=== PATIENT | female | born 1950 | race Caucasian/White ===

== ENCOUNTER → 2016-06-09 | Outpatient (CLI) | payer MEDICARE ==
--- NOTE | 2016-06-12 12:36 | XR ---
EXAMINATION TYPE: XR chest 2V DATE OF EXAM: 06/09/2016 3:39 PM COMPARISON: Prior chest x-ray 30 October 2014 HISTORY: Shortness of breath TECHNIQUE: Frontal and lateral views of the chest are obtained. FINDINGS: There is no focal air space opacity, pleural effusion, or pneumothorax seen. The cardiac silhouette size is within normal limits. Lung volumes are prominent which may be indicative of COPD . There is eventration change of the right hemidiaphragm. Patient is rotated. The osseous structures are intact. IMPRESSION: No acute cardiopulmonary process.
== END | disposition home or self-care (01) ==
LOC: RADXRYALE 15:25
PROVIDERS: ATTEND Family Medicine
DX: R06.02 Shortness of breath (principal)
CPT/HCPCS: 71020

== ENCOUNTER → 2016-06-15 | Outpatient (CLI) | payer MEDICARE ==
--- NOTE | 2016-06-15 11:59 | FL ---
EXAMINATION TYPE: FL barium swallow DATE OF EXAM: 06/15/2016 11:54 AM MODIFIED SWALLOW / DEGLUTITION STUDY CLINICAL HISTORY: Dysphagia. TECHNIQUE: Deglutition study is performed utilizing thin liquid barium, honey and nectar thick liqui d barium, barium thick applesauce, and barium coated cracker. A total of 2 minutes 8 seconds of fluor oscopic time was utilized during procedure. COMPARISON: None. FINDINGS: The oral and pharyngeal phases show satisfactory initiation and propagation with all modali ties tested. Normal mastication is seen with solid modalities tested. There is no evidence of penet ration or aspiration with any modality tested. No significant pharyngeal residue was appreciated. IMPRESSION: Normal deglutition study. Please refer to speech therapist notes for further details if necessary.
== END | disposition home or self-care (01) ==
LOC: RADFLMAIN 11:32
PROVIDERS: ATTEND Family Medicine
DX: R13.10 Dysphagia, unspecified (principal)
CPT/HCPCS: 74220

== ENCOUNTER → 2016-07-14 | Outpatient (CLI) | payer MEDICARE ==
--- NOTE | 2016-07-17 10:51 | XR ---
EXAMINATION TYPE: XR chest 2V DATE OF EXAM: 07/14/2016 2:51 PM COMPARISON: NONE HISTORY: Shortness of breath TECHNIQUE: Frontal and lateral views of the chest are obtained. FINDINGS: There is no focal air space opacity, pleural effusion, or pneumothorax seen. The cardiac silhouette size is within normal limits. Prominent lung volume may be indicative of COPD. The osseou s structures are intact. IMPRESSION: No acute cardiopulmonary process.
== END | disposition home or self-care (01) ==
LOC: RADXRYALE 14:38
PROVIDERS: ATTEND Family Medicine
DX: R06.02 Shortness of breath (principal)
CPT/HCPCS: 71020

== ENCOUNTER → 2018-03-01 | Outpatient (CLI) | payer MEDICARE ==
--- NOTE | 2018-03-01 14:52 | XR ---
EXAMINATION TYPE: XR abdomen 2V DATE OF EXAM: 03/01/2018 COMPARISON: 12/06/2014 HISTORY: Abdominal pain and diarrhea TECHNIQUE: One view abdominal series FINDINGS: The osseous structures are intact. The bowel gas pattern is nonspecific. Hypertrophic and degenerati ve change of the spine with scoliosis. Vascular calcifications. Arthropathy of the hips. IMPRESSION: 1. Nonspecific abdomen
== END | disposition home or self-care (01) ==
LOC: RADXRYALE 14:29
PROVIDERS: ATTEND Physician Assistant Medical
DX: R10.30 Lower abdominal pain, unspecified (principal); R19.7 Diarrhea, unspecified
CPT/HCPCS: 74019

== ENCOUNTER 2019-04-09 05:47 | Emergency (ER) | payer MEDICARE ==
[2019-04-09] MEDS ORDERED: IPRATROPIUM-ALBUTEROL 3 ML NEB INHALATION STA (06:16)
[2019-04-09] MEDS ORDERED: SODIUM CHLORIDE 0.9% 1,000 ML IV STA ×2 (06:16)
[2019-04-09] MEDS ORDERED: methylPREDNISolone SOD SUCCI 125 MG/2 ML VIAL IV STA (06:16)
--- NOTE | 2019-04-09 06:21 | ED ---
General Adult HPI - General Chief complaint: Shortness of Breath Stated complaint: RADHA Time Seen by Provider: 04/09/19 06:07 Source: patient, RN notes reviewed, old records reviewed Mode of arrival: ambulatory Limitations: no limitations - History of Present Illness Initial comments: 68-year-old female presents today for concern for difficulty breathing. Patient reports history of asthma and COPD. Patient reports that she does have nebulizers at home but has not used them. Patient states that she has had a this difficulty breathing for the past 2 days. Patient denies any fevers or chills. She reports her cough is nonproductive. Patient denies any chest pain, fevers or chills. - Related Data Home Medications Medication Instructions Recorded Confirmed Budesonide/Formoterol Fumarate 2 puff INHALATION RT-BID PRN 10/29/14 12/07/14 [Symbicort 160-4.5 Mcg Inhaler] Clopidogrel [Plavix] 75 mg PO DAILY 10/29/14 12/07/14 Felodipine [Felodipine ER] 10 mg PO DAILY 10/29/14 12/07/14 Ipratropium/Albuterol Sulfate 1 puff INHALATION RT-TID PRN 10/29/14 12/07/14 [Combivent Respimat Inhaler] Meclizine [Antivert] 25 mg PO DAILY 10/29/14 12/07/14 Morphine Sulfate 30 mg PO 5XD 10/29/14 12/07/14 Spironolactone [Aldactone] 25 mg PO DAILY 10/29/14 12/07/14 clonazePAM [Clonazepam] 0.5 mg PO HS 10/29/14 12/07/14 fentaNYL [Duragesic 100MCG/HR] 100 mcg TRANSDERM Q72H 10/29/14 12/07/14 Citalopram Hydrobromide [CeleXA] 20 mg PO DAILY 12/07/14 12/07/14 Previous Rx's Medication Instructions Recorded Polyethylene Glycol 3350 [Miralax] 17 gm PO DAILY #14 packet 11/03/14 Hydrocodone/Acetaminophen [[place] 1 each PO Q6HR PRN #20 tab 11/10/14 5-325] Famotidine [Pepcid] 40 mg PO DAILY tab 12/08/14 Vancomycin Oral Solution 250 mg PO Q6HR 10 Days ml 12/08/14 Ipratropium-Albuterol Nebulize 3 ml INHALATION TID #30 neb 04/09/19 [Duoneb 0.5 mg-3 mg/3 ml Soln] predniSONE 20 mg PO BID #10 tab 04/09/19 Allergies Allergy/AdvReac Type Severity Reaction Status Date / Time cefuroxime axetil Allergy Unknown Verified 12/07/14 14:39 [From Ceftin] diphenhydramine HCl Allergy Rash/Hives Verified 12/07/14 14:39 [From Benadryl] Sulfa (Sulfonamide Allergy Rash/Hives Verified 12/07/14 14:39 Antibiotics) NSAIDS (Non-Steroidal AdvReac Nausea Verified 12/07/14 14:39 Anti-Inflamma Review of Systems ROS Statement: Those systems with pertinent positive or pertinent negative responses have been documented in the HPI. ROS Other: All systems not noted in ROS Statement are negative. Past Medical History Past Medical History: Asthma, COPD, CVA/TIA, GERD/Reflux, Hypertension, Liver Disease, Pneumonia Additional Past Medical History / Comment(s): vertigo, HEP -C THINKS SHE MAY HAVE GOTTEN IT IN 1974 HAD RUPTURED TUBAL AND RECIEVED BLOOD TRANSFUSION, STROKE 2001 NO RESIDUAL PROBLEMS, PALPITATION,INCONT OF URINE, VERTIGO. History of Any Multi-Drug Resistant Organisms: C-DIFF Date of last positivie culture/infection: 12/07/14 MDRO Source:: Stool Past Surgical History: Adenoidectomy, Appendectomy, Back Surgery, Hysterectomy, Tonsillectomy Additional Past Surgical History / Comment(s): IST SX LAMENECTOMY, 2ND FUSION THINSK SHE HAS A DEBORAH INPLACE, CATARACTS [place]ERETTE LENS IMPLANTS, TUBAL IN 1974, LIVER BIOPSY NEG CANCER BUT POSITIVE FOR HEP C. Past Anesthesia/Blood Transfusion Reactions: No Reported Reaction Past Psychological History: Depression Smoking Status: Former smoker Past Alcohol Use History: None Reported Past Drug Use History: None Reported - Past Family History Father Family Medical History: Cancer Additional Family Medical History / Comment(s): BLADDER CANCER BUT FROM A STROKE Mother Family Medical History: Diabetes Mellitus, Myocardial Infarction ([place]) Additional Family Medical History / Comment(s): HEART PROBLEMS General Exam - General Exam Comments Initial Comments: 68 -year-old female. Alert and oriented. No distress. Limitations: no limitations General appearance: alert, in no apparent distress Head exam: Present: atraumatic, normocephalic, normal inspection Eye exam: Present: normal appearance, PERRL, EOMI. Absent: scleral icterus, conjunctival injection, periorbital swelling ENT exam: Present: normal exam, mucous membranes moist Neck exam: Present: normal inspection. Absent: tenderness, meningismus, lymphadenopathy Respiratory exam: Present: wheezes (mild wheeezing). Absent: respiratory distress, rales, rhonchi, stridor Cardiovascular Exam: Present: regular rate, normal rhythm, normal heart sounds. Absent: systolic murmur, diastolic murmur, rubs, gallop, clicks GI/Abdominal exam: Present: soft, normal bowel sounds. Absent: distended, tenderness, guarding, rebound, rigid Extremities exam: Present: normal inspection Back exam: Present: normal inspection Neurological exam: Present: alert, oriented X3, CN II-XII intact Psychiatric exam: Present: normal affect, normal mood Skin exam: Present: warm, dry, intact, normal color. Absent: rash Course Vital Signs 04/09/19 04/09/19 04/09/19 05:49 05:59 06:42 Temperature 97.4 F L 97.8 F Pulse Rate 82 74 Respiratory 22 20 18 Rate Blood Pressure 122/65 126/83 O2 Sat by Pulse 98 98 Oximetry 04/09/19 04/09/19 06:48 07:05 Temperature Pulse Rate 73 73 Respiratory Rate Blood Pressure O2 Sat by Pulse Oximetry EKG Findings - EKG Comments: EKG Findings:: EKG performed at 6:28 AM shows normal sinus rhythm prolonged QT. Ventricular rate of 71 beats per minute. Pulse 146 most seconds. Care is duration 76 ms. QT QTc is 454/4 and 93 ms. Medical Decision Making - Medical Decision Making Pleasant [id number] female presents today for shortness of breath and dry cough for the past 2 days. She does have some wheezing, feels some tightness with taking a deep breath in her chest. Patient does have history of asthma and COPD. She does not been using her treatments at home. Double DuoNeb treatment has resolution of her wheezing feels better. She is given IV Solu-Medrol. Blood work and EKG reviewed remarkable. Chest x-ray shows concern for mild fluid overload state but her BNP is normal. No signs of heart failure on exam. I discussed treatment for asthma exacerbations time of the short course of s teroids and continuing her nebulizers at home. Patient was reevaluated and is agreeable to this plan. Discussed strict return parameters and close PCP follow-up. - Lab Data Result diagrams: 04/09/19 06:30 04/09/19 06:30 Lab Results 04/09/19 04/09/19 04/09/19 Range/Units 06:30 06:30 06:30 WBC 4.7 (3.8-10.6) k/uL RBC 3.99 (3.80-5.40) m/uL Hgb 13.4 (11.4-16.0) gm/dL Hct 37.1 (34.0-46.0) % MCV 92.9 (80.0-100.0) fL MCH 33.5 (25.0-35.0) pg MCHC 36.1 (31.0-37.0) g/dL RDW 13.0 (11.5-15.5) % Plt Count 302 (150-450) k/uL Neutrophils % 61 % Lymphocytes % 29 % Monocytes % 6 % Eosinophils % 2 % Basophils % 0 % Neutrophils # 2.8 (1.3-7.7) k/uL Lymphocytes # 1.4 (1.0-4.8) k/uL Monocytes # 0.3 (0-1.0) k/uL Eosinophils # 0.1 (0-0.7) k/uL Basophils # 0.0 (0-0.2) k/uL Hyperchromasia Slight PT 10.9 (9.0-12.0) sec INR 1.0 (<1.2) APTT 29.0 (22.0-30.0) sec Sodium 135 L (137-145) mmol/L Potassium 3.6 (3.5-5.1) mmol/L Chloride 93 L (98-107) mmol/L Carbon Dioxide 30 (22-30) mmol/L Anion Gap 12 mmol/L BUN 10 (7-17) mg/dL Creatinine 0.85 (0.52-1.04) mg/dL Est GFR (CKD-EPI)AfAm 81 (>60 ml/min/1.73 sqM) Est GFR (CKD-EPI)NonAf 70 (>60 ml/min/1.73 sqM) Glucose 102 H (74-99) mg/dL Calcium 9.4 (8.4-10.2) mg/dL Magnesium 1.8 (1.6-2.3) mg/dL Total Bilirubin 0.7 (0.2-1.3) mg/dL AST 29 (14-36) U/L ALT 14 (4-34) U/L Alkaline Phosphatase 97 (38-126) U/L Troponin I (0.000-0.034) ng/mL NT-Pro-B Natriuret Pep pg/mL Total Protein 8.0 (6.3-8.2) g/dL Albumin 4.8 (3.5-5.0) g/dL 04/09/19 04/09/19 Range/Units 06:30 06:30 WBC (3.8-10.6) k/uL RBC (3.80-5.40) m/uL Hgb (11.4-16.0) gm/dL Hct (34.0-46.0) % MCV (80.0-100.0) fL MCH (25.0-35.0) pg MCHC (31.0-37.0) g/dL RDW (11.5-15.5) % Plt Count (150-450) k/uL Neutrophils % % Lymphocytes % % Monocytes % % Eosinophils % % Basophils % % Neutrophils # (1.3-7.7) k/uL Lymphocytes # (1.0-4.8) k/uL Monocytes # (0-1.0) k/uL Eosinophils # (0-0.7) k/uL Basophils # (0-0.2) k/uL Hyperchromasia PT (9.0-12.0) sec INR (<1.2) APTT (22.0-30.0) sec Sodium (137-145) mmol/L Potassium (3.5-5.1) mmol/L Chloride (98-107) mmol/L Carbon Dioxide (22-30) mmol/L Anion Gap mmol/L BUN (7-17) mg/dL Creatinine (0.52-1.04) mg/dL Est GFR (CKD-EPI)AfAm (>60 ml/min/1.73 sqM) Est GFR (CKD-EPI)NonAf (>60 ml/min/1.73 sqM) Glucose (74-99) mg/dL Calcium (8.4-10.2) mg/dL Magnesium (1.6-2.3) mg/dL Total Bilirubin (0.2-1.3) mg/dL AST (14-36) U/L ALT (4-34) U/L Alkaline Phosphatase (38-126) U/L Troponin I <0.012 (0.000-0.034) ng/mL NT-Pro-B Natriuret Pep 152 pg/mL Total Protein (6.3-8.2) g/dL Albumin (3.5-5.0) g/dL Disposition Clinical Impression: Asthma exacerbation in COPD Disposition: HOME SELF-CARE Condition: Good Instructions (If sedation given, give patient instructions): Asthma (ED) Additional Instructions: Continue use breathing treatments every 4-6 hours as needed. Take the steroids starting tomorrow. Close follow-up with your primary care doctor. Prescriptions: Ipratropium-Albuterol Nebulize [Duoneb 0.5 mg-3 mg/3 ml Soln] 3 ml INHALATION TID #30 neb predniSONE 20 mg PO BID #10 tab Is patient prescribed a controlled substance at d/c from ED?: No Referrals: Mack Traylor DO [Primary Care Provider] - 1-2 days Time of Disposition: 08:18
[2019-04-09 06:44] VITALS: TEMP 97.8
[2019-04-09 06:49] LABS: Basophils % (A) 0 %; Eosinophils # (A) 0.1 k/uL (0-0.7); Eosinophils % (A) 2 %; HCT 37.1 % (34.0-46.0); HGB 13.4 gm/dL (11.4-16.0); Hyperchromasia Slight; Lymphocytes # (A) 1.4 k/uL (1.0-4.8); Lymphocytes % (A) 29 %; MCH 33.5 pg (25.0-35.0); MCHC 36.1 g/dL (31.0-37.0); MCV 92.9 fL (80.0-100.0); Mean Platelet Volume 7.8; Monocytes # (A) 0.3 k/uL (0-1.0); Monocytes % (A) 6 %; Neutrophils # (A) 2.8 k/uL (1.3-7.7); Neutrophils % (A) 61 %; Platelet Count 302 k/uL (150-450); RBC 3.99 m/uL (3.80-5.40); WBC 4.7 k/uL (3.8-10.6)
[2019-04-09 06:57] LABS: Prothrombin Time 10.9 sec (9.0-12.0)
[2019-04-09 06:58] LABS: Albumin 4.8 g/dL (3.5-5.0); Calcium 9.4 mg/dL (8.4-10.2); Magnesium 1.8 mg/dL (1.6-2.3); Potassium 3.6 mmol/L (3.5-5.1); Total Bilirubin 0.7 mg/dL (0.2-1.3)
--- NOTE | 2019-04-09 07:31 | XR ---
EXAMINATION TYPE: XR chest 2V DATE OF EXAM: 04/09/2019 COMPARISON: Chest x-ray July 14, 2016. HISTORY: Difficulty in breathing. TECHNIQUE: Frontal and lateral views of the chest are obtained. FINDINGS: Background Chronic emphysematous changes are thought present. There is no new suspicious f ocal air space opacity, pleural effusion, or pneumothorax seen. And mild central vascular congestion though present as there is some cephalization noted. The cardiac silhouette size remains within hans l limits. Overlying EKG leads are seen. The osseous structures are intact. IMPRESSION: Correlate for new mild fluid overload state..
[2019-04-09 08:31] VITALS: BP 135/76; PULSE 76; RESP 16
== END 2019-04-09 08:29 | disposition home or self-care (01) ==
LOC: EC 05:47
DX: J44.1 Chronic obstructive pulmonary disease with (acute) exacerbation (principal); E87.70 Fluid overload, unspecified; I10 Essential (primary) hypertension; F32.9 Major depressive disorder, single episode, unspecified; Z79.51 Long term (current) use of inhaled steroids; Z79.02 Long term (current) use of antithrombotics/antiplatelets; Z79.899 Other long term (current) drug therapy; Z88.1 Allergy status to other antibiotic agents; Z88.8 Allergy status to other drugs, medicaments and biological substances; Z88.2 Allergy status to sulfonamides; Z88.6 Allergy status to analgesic agent; Z87.891 Personal history of nicotine dependence; Z86.73 Personal history of transient ischemic attack (TIA), and cerebral infarction without residual deficits
CPT/HCPCS: 36415; 94640; 93005; 83880; 80053; 83735; 84484; 85025; 85610; 85730; 71046; 96374; 96361; 99285; J2930

== ENCOUNTER → 2019-11-12 | Outpatient (CLI) | payer MEDICARE ==
--- NOTE | 2019-11-12 10:12 | XR ---
EXAMINATION TYPE: XR ankle complete RT DATE OF EXAM: 11/12/2019 CLINICAL HISTORY: Ankle swelling and redness. No known injury. TECHNIQUE: Frontal, lateral and oblique images of the right ankle are obtained. COMPARISON: None. FINDINGS: There is no acute fracture/dislocation evident in the right ankle. The ankle mortise appe ars within normal limits. Degenerative changes of the midfoot seen on lateral view. Plantar entheso phyte. Decreased osseous mineralization. The overlying soft tissue appears unremarkable. IMPRESSION: 1. No swelling or acute osseous abnormality. 2. Degenerative changes of the midfoot. 3. Plantar enthesophyte.
== END | disposition home or self-care (01) ==
LOC: RADXRYALE 09:09
PROVIDERS: ATTEND Physician Assistant
DX: M19.071 Primary osteoarthritis, right ankle and foot (principal); M77.31 Calcaneal spur, right foot

== ENCOUNTER → 2020-12-22 | Outpatient (CLI) | payer MEDICARE ==
--- NOTE | 2020-12-23 13:12 | BD ---
EXAMINATION TYPE: Axial Bone Density DATE OF EXAM: 12/22/2020 COMPARISON: 12/11/2014 CLINICAL HISTORY: Height: 62 IN Weight: 115 LBS RISK FACTORS HISTORY OF: Active: LIMITED Diet low in dairy products/other sources of calcium: YES Postmenopausal woman: LIMITED Take estrogen and/or progesterone medications: NOT NOW How long: APPROX 5 YEARS Lost more than 2 inches in height since high school: YES 3 " MEDICATIONS: Additional Medications: PAIN MEDS EXAM MEASUREMENTS: Bone mineral densitometry was performed using the NEHP System. Bone mineral density as measured about the Lumbar spine is: ----- L1-L4(G/cm2): 1.416 T Score Values are as follows: ----- L2: 1.9 ----- L3: 2.9 ----- L4: 0.8 ----- L1-L4: 2.0 Bone mineral density has: Decreased -11.7% since study of: 12/11/2014 Bone mineral density about the R hip (g/cm2): 0.906 Bone mineral density about the L hip (g/cm2): 0.859 T Score values are as follows: -----R Neck: -1.0 -----L Neck: -1.3 -----R Total: -0.6 -----L Total: -1.4 Bone mineral density has: Decreased -12.8% since study of: 12/11/2014 IMPRESSION: Osteopenia (T Score between -2.5 and -1). There is slightly increased risk of fracture and the patient may be considered for treatment. Re-Screen 2-5 years. NOTE: T-SCORE=SD OF THE YOUNG ADULT MEAN.
--- NOTE | 2020-12-24 11:46 | MM ---
Reason for exam: screening (asymptomatic). Last mammogram was performed 6 years ago. History: Patient is postmenopausal. Excisional biopsy of the left breast, October 02, 2006. Took estrogen for 6 years beginning at age 45. Physical Findings: A clinical breast exam by your physician is recommended on an annual basis and results should be correlated with mammographic findings. MG 3D Screening Mammo W/Cad Bilateral CC and MLO view(s) were taken. Prior study comparison: December 11, 2014, bilateral MG screening mammo w CAD. January 31, 2013, bilateral digital screening mammogram. Focal asymmetryl left upper inner quadrant middle position. No significant changes when compared with prior studies. ASSESSMENT: Benign, BI-RAD 2 RECOMMENDATION: Routine screening mammogram of both breasts in 1 year.
== END | disposition home or self-care (01) ==
LOC: RADBDWWP 15:05
PROVIDERS: ATTEND Family Medicine
DX: Z12.31 Encounter for screening mammogram for malignant neoplasm of breast (principal); M85.89 Other specified disorders of bone density and structure, multiple sites; Z78.0 Asymptomatic menopausal state; Z79.818 Long term (current) use of other agents affecting estrogen receptors and estrogen levels
CPT/HCPCS: 77063; 77067; 77080

== ENCOUNTER 2021-12-31 19:24 | Emergency (ER) | payer MEDICARE ==
[2021-12-31 20:09] LABS: Basophils % (A) 0 %; Eosinophils # (A) 0.1 k/uL (0-0.7); Eosinophils % (A) 1 %; HCT 35.8 % (34.0-46.0); HGB 12.4 gm/dL (11.4-16.0); Lymphocytes # (A) 0.9 k/uL (1.0-4.8); Lymphocytes % (A) 12 %; MCH 34.4 pg (25.0-35.0); MCHC 34.7 g/dL (31.0-37.0); Mean Platelet Volume 7.8; Monocytes # (A) 0.6 k/uL (0-1.0); Monocytes % (A) 7 %; Neutrophils % (A) 77 %; Platelet Count 181 k/uL (150-450); RBC 3.61 m/uL (3.80-5.40); RDW 13.6 % (11.5-15.5); WBC 7.8 k/uL (3.8-10.6)
[2021-12-31 20:17] LABS: Partial Thromboplastin Time 30.8 sec (22.0-30.0); Prothrombin Time 10.8 sec (9.0-12.0)
--- NOTE | 2021-12-31 20:17 | ED ---
General Adult HPI <Benji Rodriguez - Last Filed: 01/01/22 02:53> - General Source: patient, EMS Mode of arrival: EMS Limitations: no limitations <SarinaDeonte - Last Filed: 01/01/22 17:05> - General Chief complaint: Weakness Stated complaint: Weakness Time Seen by Provider: 12/31/21 20:12 - History of Present Illness Initial comments: Patient presents to the ED by ambulance for evaluation. Patient states that she has felt generally weak, tired and dyspneic for the past couple of days. Jm nicholson is also noted to have a low-grade fever on arrival to the ED. Patient denies taking any antipyretic medication today. Patient states that she is not vaccinated for Covid. Patient denies having any pain, headache, focal numbness/weakness/neuro deficit, neck pain or stiffness, sore throat, chest pain, cough or cold symptoms, palpitations, dizziness, abdominal pain, nausea/vomiting/diarrhea, bloody or melanotic stool, dysuria/hematuria/urinary frequency/urinary symptoms, decreased urine output, leg or calf swelling or pain, or any other symptoms or complaints. (Deonte Branch) - Related Data Home Medications Medication Instructions Recorded Confirmed Budesonide/Formoterol Fumarate 2 puff INHALATION RT-BID PRN 10/29/14 12/07/14 [Symbicort 160-4.5 Mcg Inhaler] Clopidogrel [Plavix] 75 mg PO DAILY 10/29/14 12/07/14 Felodipine [Felodipine ER] 10 mg PO DAILY 10/29/14 12/07/14 Ipratropium/Albuterol Sulfate 1 puff INHALATION RT-TID PRN 10/29/14 12/07/14 [Combivent Respimat Inhaler] Meclizine [Antivert] 25 mg PO DAILY 10/29/14 12/07/14 Morphine Sulfate 30 mg PO 5XD 10/29/14 12/07/14 Spironolactone [Aldactone] 25 mg PO DAILY 10/29/14 12/07/14 clonazePAM 0.5 mg PO HS 10/29/14 12/07/14 fentaNYL [Duragesic 100MCG/HR] 100 mcg TRANSDERM Q72H 10/29/14 12/07/14 Citalopram Hydrobromide [CeleXA] 20 mg PO DAILY 12/07/14 12/07/14 Previous Rx's Medication Instructions Recorded polyethylene glycoL 3350 [Miralax] 17 gm PO DAILY #14 packet 11/03/14 Hydrocodone/Acetaminophen [[place] 1 each PO Q6HR PRN #20 tab 11/10/14 5-325] Famotidine [Pepcid] 40 mg PO DAILY tab 12/08/14 Vancomycin Oral Solution 250 mg PO Q6HR 10 Days ml 12/08/14 Ipratropium-Albuterol Nebulize 3 ml INHALATION TID #30 neb 04/09/19 [Duoneb 0.5 mg-3 mg/3 ml Soln] predniSONE [Deltasone] 20 mg PO BID #10 tab 04/09/19 Levofloxacin [Levaquin] 500 mg PO DAILY 7 Days #7 tab 01/01/22 Allergies Allergy/AdvReac Type Severity Reaction Status Date / Time cefuroxime axetil Allergy Unknown Verified 12/31/21 19:31 [From Ceftin] diphenhydramine HCl Allergy Rash/Hives Verified 12/31/21 19:31 [From Benadryl] Sulfa (Sulfonamide Allergy Rash/Hives Verified 12/31/21 19:31 Antibiotics) NSAIDS (Non-Steroidal AdvReac Nausea Verified 12/31/21 19:31 Anti-Inflamma Review of Systems ROS Other: All systems not noted in ROS Statement are negative. <Benji Rodriguez - Last Filed: 01/01/22 02:53> ROS Other: All systems not noted in ROS Statement are negative. <Deonte Branch - Last Filed: 01/01/22 17:05> ROS Statement: Those systems with pertinent positive or pertinent negative responses have been documented in the HPI. Past Medical History Past Medical History: Asthma, COPD, CVA/TIA, GERD/Reflux, Hypertension, Liver Disease, Pneumonia Additional Past Medical History / Comment(s): vertigo, HEP -C THINKS SHE MAY HAVE GOTTEN IT IN 1974 HAD RUPTURED TUBAL AND RECIEVED BLOOD TRANSFUSION, STROKE 2001 NO RESIDUAL PROBLEMS, PALPITATION,INCONT OF URINE, VERTIGO. History of Any Multi-Drug Resistant Organisms: C-DIFF Date of last positivie culture/infection: 12/07/14 MDRO Source:: Stool Past Surgical History: Adenoidectomy, Appendectomy, Back Surgery, Hysterectomy, Tonsillectomy Additional Past Surgical History / Comment(s): IST SX LAMENECTOMY, 2ND FUSION THINSK SHE HAS A DEBORAH INPLACE, CATARACTS [place]ERETTE LENS IMPLANTS, TUBAL IN 1974, LIVER BIOPSY NEG CANCER BUT POSITIVE FOR HEP C. Past Anesthesia/Blood Transfusion Reactions: No Reported Reaction Past Psychological History: Depression Smoking Status: Never smoker Past Alcohol Use History: None Reported Past Drug Use History: None Reported - Past Family History Father Family Medical History: Cancer Additional Family Medical History / Comment(s): BLADDER CANCER BUT FROM A STROKE Mother Family Medical History: Diabetes Mellitus, Myocardial Infarction ([place]) Additional Family Medical History / Comment(s): HEART PROBLEMS <Deonte Branch - Last Filed: 01/01/22 17:05> General Exam General appearance: alert, in no apparent distress Head exam: Present: atraumatic, normocephalic, normal inspection Eye exam: Present: normal appearance, PERRL, EOMI. Absent: scleral icterus, conjunctival injection, periorbital swelling ENT exam: Present: normal exam, mucous membranes moist Neck exam: Present: normal inspection. Absent: tenderness, meningismus, lymphadenopathy Respiratory exam: Present: normal lung sounds bilaterally. Absent: respiratory distress, wheezes, rales, rhonchi, stridor Cardiovascular Exam: Present: regular rate, normal rhythm, normal heart sounds. Absent: systolic murmur, diastolic murmur, rubs, gallop, clicks GI/Abdominal exam: Present: soft, normal bowel sounds. Absent: distended, tenderness, guarding, rebound, rigid Extremities exam: Present: normal inspection, full ROM, normal capillary refill. Absent: tenderness, pedal edema, joint swelling, calf tenderness Back exam: Present: normal inspection Neurological exam: Present: alert, oriented X3, CN II-XII intact Psychiatric exam: Present: normal affect, normal mood Skin exam: Present: warm, dry, intact, normal color. Absent: rash <Benji Rodriguez - Last Filed: 01/01/22 02:53> Limitations: no limitations General appearance: alert, in no apparent distress Head exam: Present: atraumatic, normocephalic Eye exam: Present: normal appearance, PERRL, EOMI ENT exam: Present: mucous membranes moist Neck exam: Present: other (No nuchal rigidity or meningeal signs are present on exam; trachea is in midline). Absent: tenderness, meningismus Respiratory exam: Present: normal lung sounds bilaterally, other (Bilateral expiratory wheezes). Absent: respiratory distress, rales, rhonchi, stridor Cardiovascular Exam: Present: regular rate, normal rhythm, normal heart sounds, other (Normal radial pulses bilaterally) GI/Abdominal exam: Present: soft. Absent: distended, tenderness, guarding Extremities exam: Present: other (Negative Homans sign bilaterally). Absent: tenderness, pedal edema, calf tenderness Back exam: Absent: CVA tenderness (R), CVA tenderness (L) Neurological exam: Present: alert, oriented X3. Absent: motor sensory deficit Psychiatric exam: Present: normal affect, normal mood Skin exam: Present: warm, dry, intact, normal color <Deonte Branch - Last Filed: 01/01/22 17:05> Course <Benji Rodriguez - Last Filed: 01/01/22 02:53> <Deonte Branch - Last Filed: 01/01/22 17:05> Vital Signs 12/31/21 12/31/21 12/31/21 19:31 19:53 20:00 Temperature 100.7 F H Pulse Rate 82 81 81 Respiratory 16 19 22 Rate Blood Pressure 146/79 146/79 138/75 O2 Sat by Pulse 95 95 94 L Oximetry 12/31/21 12/31/21 12/31/21 21:00 22:00 22:12 Temperature Pulse Rate 81 76 76 Respiratory 16 14 Rate Blood Pressure 136/75 128/98 O2 Sat by Pulse 94 L 94 L Oximetry 12/31/21 12/31/21 01/01/22 22:33 23:00 00:00 Temperature 99 F Pulse Rate 82 Respiratory 22 Rate Blood Pressure 130/72 142/80 O2 Sat by Pulse 99 Oximetry 01/01/22 01/01/22 01/01/22 01:00 02:00 03:00 Temperature Pulse Rate 75 77 108 H Respiratory 19 13 15 Rate Blood Pressure 136/69 139/80 107/72 O2 Sat by Pulse 96 Oximetry 01/01/22 01/01/22 04:00 05:00 Temperature Pulse Rate 107 H 110 H Respiratory 18 16 Rate Blood Pressure 99/66 109/70 O2 Sat by Pulse Oximetry - Reevaluation(s) Reevaluation #1: 12/31/21 23:17 Patient was endorsed to Dr. Rodriguez secondary to end of my shift. Patient's UA is still pending at this time. Dr. Rodriguez to follow up on the patient's UA results and to take over care of the patient at this time. (Deonte Branch) Reevaluation #2: 01/01/22 02:54 Medical records reviewed (Benji Rodriguez) Reevaluation #3: 01/01/22 02:54 Patient symptoms are improved (Benji Rodriguez) Reevaluation #4: 01/01/22 02:54 Patient informed results and questions answered (Benji Rodriguez) EKG Findings - EKG Comments: EKG Findings:: Normal sinus rhythm, ventricular rate of 81 bpm, no ectopy, normal [place] and QRS intervals, prolonged QTc interval of 539 ms, nonspecific ST abnormality, normal axis <Deonte Branch - Last Filed: 01/01/22 17:05> Medical Decision Making - Lab Data Result diagrams: 12/31/21 20:02 12/31/21 20:02 - Radiology Data Radiology results: report reviewed (Chest x-rays negative for acute disease), image reviewed <Benji Rodriguez - Last Filed: 01/01/22 02:53> - Lab Data Result diagrams: 12/31/21 20:02 12/31/21 20:02 <Deonte Branch - Last Filed: 01/01/22 17:05> - Medical Decision Making 71 female to the ER for evaluation. Patient presents today for evaluation of weakness, found of fever and urinary tract infection, patient feels improved here in the ER after hydration IV antibiotics and can be discharged home (Benji Rodriguez) - Lab Data Lab Results 12/31/21 12/31/21 12/31/21 Range/Units 20:02 20:02 20:02 WBC 7.8 (3.8-10.6) k/uL RBC 3.61 L (3.80-5.40) m/uL Hgb 12.4 (11.4-16.0) gm/dL Hct 35.8 (34.0-46.0) % MCV 99.0 (80.0-100.0) fL MCH 34.4 (25.0-35.0) pg MCHC 34.7 (31.0-37.0) g/dL RDW 13.6 (11.5-15.5) % Plt Count 181 (150-450) k/uL MPV 7.8 Neutrophils % 77 % Lymphocytes % 12 % Monocytes % 7 % Eosinophils % 1 % Basophils % 0 % Neutrophils # 6.0 (1.3-7.7) k/uL Lymphocytes # 0.9 L (1.0-4.8) k/uL Monocytes # 0.6 (0-1.0) k/uL Eosinophils # 0.1 (0-0.7) k/uL Basophils # 0.0 (0-0.2) k/uL PT 10.8 (9.0-12.0) sec INR 1.0 (<1.2) APTT 30.8 H (22.0-30.0) sec Sodium 131 L (137-145) mmol/L Potassium 3.5 (3.5-5.1) mmol/L Chloride 90 L (98-107) mmol/L Carbon Dioxide 28 (22-30) mmol/L Anion Gap 13 mmol/L BUN 30 H (7-17) mg/dL Creatinine 0.68 (0.52-1.04) mg/dL Est GFR (CKD-EPI)AfAm >90 (>60 ml/min/1.73 sqM) Est GFR (CKD-EPI)NonAf 88 (>60 ml/min/1.73 sqM) Glucose 111 H (74-99) mg/dL Plasma Lactic Acid Jerry (0.7-2.0) mmol/L Calcium 9.0 (8.4-10.2) mg/dL Magnesium 1.8 (1.6-2.3) mg/dL Total Bilirubin 1.7 H (0.2-1.3) mg/dL AST 35 (14-36) U/L ALT 13 (4-34) U/L Alkaline Phosphatase 84 (38-126) U/L Troponin I (0.000-0.034) ng/mL Total Protein 7.4 (6.3-8.2) g/dL Albumin 4.5 (3.5-5.0) g/dL Urine Color Urine Appearance (Clear) Urine pH (5.0-8.0) Ur Specific [place] (1.001-1.035) Urine Protein (Negative) Urine Glucose (UA) (Negative) Urine Ketones (Negative) Urine Blood (Negative) Urine Nitrite (Negative) Urine Bilirubin (Negative) Urine Urobilinogen (<2.0) mg/dL Ur Leukocyte Esterase (Negative) Urine RBC (0-5) /hpf Urine WBC (0-5) /hpf Ur Squamous Epith Cells (0-4) /hpf Urine Bacteria (None) /hpf Urine Mucus (None) /hpf Coronavirus (PCR) (Not Detectd) 12/31/21 12/31/21 12/31/21 Range/Units 20:02 20:02 20:02 WBC (3.8-10.6) k/uL RBC (3.80-5.40) m/uL Hgb (11.4-16.0) gm/dL Hct (34.0-46.0) % MCV (80.0-100.0) fL MCH (25.0-35.0) pg MCHC (31.0-37.0) g/dL RDW (11.5-15.5) % Plt Count (150-450) k/uL MPV Neutrophils % % Lymphocytes % % Monocytes % % Eosinophils % % Basophils % % Neutrophils # (1.3-7.7) k/uL Lymphocytes # (1.0-4.8) k/uL Monocytes # (0-1.0) k/uL Eosinophils # (0-0.7) k/uL Basophils # (0-0.2) k/uL PT (9.0-12.0) sec INR (<1.2) APTT (22.0-30.0) sec Sodium (137-145) mmol/L Potassium (3.5-5.1) mmol/L Chloride (98-107) mmol/L Carbon Dioxide (22-30) mmol/L Anion Gap mmol/L BUN (7-17) mg/dL Creatinine (0.52-1.04) mg/dL Est GFR (CKD-EPI)AfAm (>60 ml/min/1.73 sqM) Est GFR (CKD-EPI)NonAf (>60 ml/min/1.73 sqM) Glucose (74-99) mg/dL Plasma Lactic Acid Jerry 1.0 (0.7-2.0) mmol/L Calcium (8.4-10.2) mg/dL Magnesium (1.6-2.3) mg/dL Total Bilirubin (0.2-1.3) mg/dL AST (14-36) U/L ALT (4-34) U/L Alkaline Phosphatase (38-126) U/L Troponin I 0.026 (0.000-0.034) ng/mL Total Protein (6.3-8.2) g/dL Albumin (3.5-5.0) g/dL Urine Color Urine Appearance (Clear) Urine pH (5.0-8.0) Ur Specific [place] (1.001-1.035) Urine Protein (Negative) Urine Glucose (UA) (Negative) Urine Ketones (Negative) Urine Blood (Negative) Urine Nitrite (Negative) Urine Bilirubin (Negative) Urine Urobilinogen (<2.0) mg/dL Ur Leukocyte Esterase (Negative) Urine RBC (0-5) /hpf Urine WBC (0-5) /hpf Ur Squamous Epith Cells (0-4) /hpf Urine Bacteria (None) /hpf Urine Mucus (None) /hpf Coronavirus (PCR) Not Detected (Not Detectd) 01/01/22 Range/Units 01:42 WBC (3.8-10.6) k/uL RBC (3.80-5.40) m/uL Hgb (11.4-16.0) gm/dL Hct (34.0-46.0) % MCV (80.0-100.0) fL MCH (25.0-35.0) pg MCHC (31.0-37.0) g/dL RDW (11.5-15.5) % Plt Count (150-450) k/uL MPV Neutrophils % % Lymphocytes % % Monocytes % % Eosinophils % % Basophils % % Neutrophils # (1.3-7.7) k/uL Lymphocytes # (1.0-4.8) k/uL Monocytes # (0-1.0) k/uL Eosinophils # (0-0.7) k/uL Basophils # (0-0.2) k/uL PT (9.0-12.0) sec INR (<1.2) APTT (22.0-30.0) sec Sodium (137-145) mmol/L Potassium (3.5-5.1) mmol/L Chloride (98-107) mmol/L Carbon Dioxide (22-30) mmol/L Anion Gap mmol/L BUN (7-17) mg/dL Creatinine (0.52-1.04) mg/dL Est GFR (CKD-EPI)AfAm (>60 ml/min/1.73 sqM) Est GFR (CKD-EPI)NonAf (>60 ml/min/1.73 sqM) Glucose (74-99) mg/dL Plasma Lactic Acid Jerry (0.7-2.0) mmol/L Calcium (8.4-10.2) mg/dL Magnesium (1.6-2.3) mg/dL Total Bilirubin (0.2-1.3) mg/dL AST (14-36) U/L ALT (4-34) U/L Alkaline Phosphatase (38-126) U/L Troponin I (0.000-0.034) ng/mL Total Protein (6.3-8.2) g/dL Albumin (3.5-5.0) g/dL Urine Color Yellow Urine Appearance Clear (Clear) Urine pH 6.0 (5.0-8.0) Ur Specific [place] 1.017 (1.001-1.035) Urine Protein 1+ H (Negative) Urine Glucose (UA) Negative (Negative) Urine Ketones Negative (Negative) Urine Blood Small H (Negative) Urine Nitrite Negative (Negative) Urine Bilirubin Negative (Negative) Urine Urobilinogen 2.0 (<2.0) mg/dL Ur Leukocyte Esterase Large H (Negative) Urine RBC 4 (0-5) /hpf Urine WBC 23 H (0-5) /hpf Ur Squamous Epith Cells 2 (0-4) /hpf Urine Bacteria Rare H (None) /hpf Urine Mucus Rare H (None) /hpf Coronavirus (PCR) (Not Detectd) - Radiology Data Chest x-ray: Normal chest. (Deonte Branch) Disposition Is patient prescribed a controlled substance at d/c from ED?: No Time of Disposition: 03:00 <Benji Rodriguez - Last Filed: 01/01/22 02:53> Is patient prescribed a controlled substance at d/c from ED?: No <SarinaBrigitteDeonte - Last Filed: 01/01/22 17:05> Clinical Impression: Generalized weakness, Acute febrile illness, Dyspnea, Wheezing, UTI (urinary tract infection), Fever Disposition: HOME SELF-CARE Condition: Fair Instructions (If sedation given, give patient instructions): Urinary Tract Infection in Women (ED) Prescriptions: Levofloxacin [Levaquin] 500 mg PO DAILY 7 Days #7 tab Referrals: Mack Traylor DO [Primary Care Provider] - 1-2 days
[2021-12-31 20:18] LABS: ALT 13 U/L (4-34); AST 35 U/L (14-36); African American GFR (CKD) >90 (>60 ml/min/1.73 sqM); Albumin 4.5 g/dL (3.5-5.0); Alkaline Phosphatase 84 U/L (38-126); Anion Gap 13 mmol/L; Blood Urea Nitrogen 30 mg/dL (7-17); Carbon Dioxide 28 mmol/L (22-30); Chloride 90 mmol/L (98-107); Glucose 111 mg/dL (74-99); Magnesium 1.8 mg/dL (1.6-2.3); Non-African American GFR(CKD) 88 (>60 ml/min/1.73 sqM); Sodium 131 mmol/L (137-145); Total Bilirubin 1.7 mg/dL (0.2-1.3); Total Protein 7.4 g/dL (6.3-8.2)
[2021-12-31 20:24] LABS: Potassium 3.5 mmol/L (3.5-5.1)
--- NOTE | 2021-12-31 20:54 | XR ---
EXAMINATION TYPE: XR chest 1V portable DATE OF EXAM: 12/31/2021 COMPARISON: NONE HISTORY: Weakness TECHNIQUE: Single view FINDINGS: Heart and mediastinum are normal. Lungs are clear. Diaphragm is normal. Bony thorax is inta ct. IMPRESSION: Normal chest
[2021-12-31] MEDS ORDERED: IPRATROPIUM-ALBUTEROL 3 ML NEB INHALATION STA (21:01)
[2022-01-01] MEDS ORDERED: SODIUM CHLORIDE 0.9% 1,000 ML IV STA (00:46)
[2022-01-01] MEDS ORDERED: ACETAMINOPHEN TAB 500 MG TAB PO STA (00:46)
[2022-01-01 00:55] VITALS: TEMP 99
[2022-01-01 01:58] LABS: Appearance,Urine Clear (Clear); Bacteria,Urine Rare /hpf; Bilirubin,Urine Negative (Negative); Blood,Urine Small (Negative); Color,Urine Yellow; Glucose,Urine (UA) Negative (Negative); Ketones,Urine Negative (Negative); Leukocyte Esterase,Urine Large (Negative); Mucus,Urine Rare /hpf; Nitrite,Urine Negative (Negative); Protein,Urine 1+ (Negative); RBC,Urine 4 /hpf (0-5); Specific Gravity,Urine 1.017 (1.001-1.035); Squamous Epithelial Cell,Urine 2 /hpf (0-4); WBC,Urine 23 /hpf (0-5)
[2022-01-01] MEDS ORDERED: LEVOFLOXACIN 500 MG TAB PO STA (02:51)
[2022-01-01] MEDS ORDERED: LEVOFLOXACIN 750MG-D5W PMX 750 MG in DEXTROSE/WATER 1 150ML.BAG IVPB STA (02:51)
[2022-01-01 05:26] VITALS: BP 109/70; PULSE 110; RESP 16
== END 2022-01-01 05:40 | disposition home or self-care (01) ==
LOC: EC 19:24
DX: R53.1 Weakness (principal); R50.9 Fever, unspecified; N39.0 Urinary tract infection, site not specified; R06.00 Dyspnea, unspecified; Z88.2 Allergy status to sulfonamides; Z88.8 Allergy status to other drugs, medicaments and biological substances; Z88.6 Allergy status to analgesic agent; J44.9 Chronic obstructive pulmonary disease, unspecified; I10 Essential (primary) hypertension; K21.9 Gastro-esophageal reflux disease without esophagitis; Z79.83 Long term (current) use of bisphosphonates; Z82.49 Family history of ischemic heart disease and other diseases of the circulatory system
CPT/HCPCS: 36415; 94640; 93005; 80053; 83605; 83735; 84484; 85025; 85610; 85730; 81001; 87040; 87086; 87635; 71045; 99285; 96365; 96361; J1956; 96360

== ENCOUNTER → 2023-05-22 | Outpatient (CLI) | payer MEDICARE ==
--- NOTE | 2023-05-23 20:03 | MM ---
Reason for Exam: Screening (asymptomatic). Last mammogram was performed 2 year(s) and 4 month(s) ago. Patient History: Menarche at age 12. First Full-Term at age 19. Left ovary removed at age 45. Right ovary removed at age 45. Hysterectomy at age 45. Postmenopausal. Estrogen for 6 years from age 45 until age 51. 10/02/2006, Excisional Biopsy on the Left side. Risk Values: Vielka 5 year model risk: 1.9%. NCI Lifetime model risk: 4.6%. Prior Study Comparison: 12/11/2014 Bilateral Screening Mammogram, [facility]. 12/17/2014 Right Diagnostic Mammogram, [facility]. 12/22/2020 Bilateral Screening Mammogram, [facility]. Tissue Density: The breast tissue is heterogeneously dense. This may lower the sensitivity of mammography. Findings: Analyzed By CAD. Unchanged asymmetric densities bilaterally. Benign vascular calcifications are also present. There is no suspicious group of microcalcifications or new suspicious mass in either breast. Overall Assessment: Benign, BI-RAD 2 Management: Screening Mammogram of both breasts in 1 year. . Patient should continue monthly self-breast exams. A clinical breast exam by your physician is recommended on an annual basis. This exam should not preclude additional follow-up of suspicious palpable abnormalities. Note on Vielka scores and lifetime risk: 1. A Vielka score greater than 3% is considered moderate risk. If this is the case, consider specialist referral to assess eligibility for a risk reducing agent. 2. If overall lifetime risk for the development of breast cancer is 20% or higher, the patient may qualify for future screening with alternating mammogram and breast MRI. Electronically signed and approved by: Annie Bailey M.D. Radiologist
== END | disposition home or self-care (01) ==
LOC: RADMAMWWP 16:21
PROVIDERS: ATTEND Family Medicine
DX: Z12.31 Encounter for screening mammogram for malignant neoplasm of breast (principal); Z78.0 Asymptomatic menopausal state
CPT/HCPCS: 77063; 77067

== ENCOUNTER 2024-04-15 17:49 | Inpatient (IN) | payer MEDICARE ==
--- NOTE | 2024-04-15 18:29 | ED ---
General Adult HPI - General Chief complaint: Weakness Stated complaint: dehydration/fever Time Seen by Provider: 04/15/24 18:28 Source: patient, family Mode of arrival: wheelchair Limitations: no limitations - History of Present Illness Initial comments: Patient presents to the ED (brought by her who is also currently being seen as a patient) for evaluation of generalized weakness. Patient states "I just don't feel well". Patient is unable to explain to me how she does not feel well besides stating that she feels generally weak. Patient states that her feels that she is dehydrated. Patient reportedly accidentally fell on her way in to the ED today, but she denies sustaining any injuries from her fall. Patient denies head injury or LOC. Patient denies having any pain, fever or chills, headache, focal numbness/weakness/neuro deficit, neck/back/extremity pain, chest pain, dyspnea, cough or cold symptoms, palpitations, dizziness, syncope, abdominal pain, nausea/vomiting/diarrhea, bloody or melanotic stool, dysuria/hematuria/urinary frequency/urinary symptoms, decreased urine output, or any other symptoms or complaints. Patient states that she does take pain medications, but she is unable to tell me which ones. Patient admits to occasional alcohol use, but she denies any alcohol use today. Patient denies any illicit drug use. - Related Data Home Medications Medication Instructions Recorded Confirmed Budesonide/Formoterol Fumarate 2 puff INHALATION RT-BID 10/29/14 04/15/24 [Symbicort 160-4.5 Mcg Inhaler] Clopidogrel [Plavix] 75 mg PO DAILY 10/29/14 04/15/24 Atorvastatin [Lipitor] 20 mg PO DAILY 04/15/24 04/15/24 DULoxetine HCL [Cymbalta] 30 mg PO DAILY 04/15/24 04/15/24 Losartan [Cozaar] 25 mg PO DAILY 04/15/24 04/15/24 Mirabegron [Myrbetriq] 50 mg PO DAILY 04/15/24 04/15/24 Morphine Sulfate 15 mg PO TID 04/15/24 04/15/24 Pantoprazole [Protonix] 40 mg PO DAILY 04/15/24 04/15/24 Rivaroxaban [Xarelto] 20 mg PO DAILY 04/15/24 04/15/24 dilTIAZem HCL [Cardizem CD] 120 mg PO DAILY 04/15/24 04/15/24 Allergies Allergy/AdvReac Type Severity Reaction Status Date / Time cefuroxime axetil Allergy Unknown Verified 04/15/24 19:42 [From Ceftin] diphenhydramine HCl Allergy Rash/Hives Verified 04/15/24 19:42 [From Benadryl] Sulfa (Sulfonamide Allergy Rash/Hives Verified 04/15/24 19:42 Antibiotics) NSAIDS (Non-Steroidal AdvReac Nausea Verified 04/15/24 19:42 Anti-Inflamma Review of Systems ROS Statement: Those systems with pertinent positive or pertinent negative responses have been documented in the HPI. ROS Other: All systems not noted in ROS Statement are negative. Past Medical History Past Medical History: Asthma, COPD, CVA/TIA, GERD/Reflux, Hypertension, Liver Disease, Pneumonia Additional Past Medical History / Comment(s): vertigo, HEP -C THINKS SHE MAY HAVE GOTTEN IT IN 1974 HAD RUPTURED TUBAL AND RECIEVED BLOOD TRANSFUSION, STROKE 2001 NO RESIDUAL PROBLEMS, PALPITATION,INCONT OF URINE, VERTIGO. History of Any Multi-Drug Resistant Organisms: C-DIFF Date of last positivie culture/infection: 12/07/14 MDRO Source:: Stool Past Surgical History: Adenoidectomy, Appendectomy, Back Surgery, Hysterectomy, Tonsillectomy Additional Past Surgical History / Comment(s): IST SX LAMENECTOMY, 2ND FUSION THINSK SHE HAS A DEBORAH INPLACE, CATARACTS [place]TE LENS IMPLANTS, TUBAL IN 1974, LIVER BIOPSY NEG CANCER BUT POSITIVE FOR HEP C. Past Anesthesia/Blood Transfusion Reactions: No Reported Reaction Past Psychological History: Depression Smoking Status: Never smoker Past Alcohol Use History: Daily, Heavy Past Drug Use History: None Reported - Past Family History Father Family Medical History: Cancer Additional Family Medical History / Comment(s): BLADDER CANCER BUT FROM A STROKE Mother Family Medical History: Diabetes Mellitus, Myocardial Infarction (VT) Additional Family Medical History / Comment(s): HEART PROBLEMS General Exam Limitations: no limitations General appearance: alert Head exam: Present: atraumatic, normocephalic Eye exam: Present: normal appearance, PERRL, EOMI, other (Pupils are somewhat constricted bilaterally) ENT exam: Present: other (Tacky mucous membranes) Neck exam: Present: other (Trachea is in midline). Absent: tenderness, meningismus Respiratory exam: Present: normal lung sounds bilaterally. Absent: respiratory distress, wheezes, rales, rhonchi, stridor, chest wall tenderness Cardiovascular Exam: Present: tachycardia, irregular rhythm, normal heart sounds, other (Normal radial pulses bilaterally) GI/Abdominal exam: Present: soft. Absent: distended, tenderness, guarding Extremities exam: Present: full ROM, other (Pelvis is stable and nontender). Absent: tenderness, pedal edema Back exam: Absent: tenderness Neurological exam: Present: alert, CN II-XII intact, other (Patient is alert and oriented to person, place and date, but not to day of the week). Absent: motor sensory deficit Psychiatric exam: Present: normal affect Skin exam: Present: warm, dry, intact, normal color Course Vital Signs 04/15/24 04/15/24 04/15/24 18:17 18:39 18:41 Temperature 97.2 F L Pulse Rate 65 130 H 117 H Respiratory 16 18 18 Rate Blood Pressure 62/49 102/57 91/40 O2 Sat by Pulse 97 98 98 Oximetry 04/15/24 04/15/24 04/15/24 19:29 19:32 19:37 Temperature Pulse Rate 133 H 131 H 121 H Respiratory 17 15 18 Rate Blood Pressure 97/75 85/58 85/58 O2 Sat by Pulse 90 L 98 97 Oximetry 04/15/24 04/15/24 04/15/24 19:42 19:57 21:38 Temperature Pulse Rate 130 H 75 78 Respiratory 15 16 16 Rate Blood Pressure 91/62 116/64 102/74 O2 Sat by Pulse 94 L 100 95 Oximetry - Reevaluation(s) Reevaluation #1: 04/15/24 20:04 Patient's blood pressure has now improved significantly, and she now appears to be in a sinus rhythm with a normal heart rate (in the 70s) on the cardiac monito r. Repeat EKG has been ordered. Patient denies development of any new symptoms while in the ED, and she remains alert and breathing comfortably. 04/15/24 22:30 Patient remains normotensive and in normal sinus rhythm on the court monitor. Patient remains alert and breathing comfortably. Patient denies development of any new symptoms while in the ED. Patient is aware of her test results, and she agrees with hospital admission at this time. 04/15/24 23:04 Case, H&P, test results and ED management thus far were discussed with Dr. Skinner. He accepts hospital admission. He agrees with cardiology consultation. He has no further recommendations at this time. EKG Findings - EKG Comments: EKG Findings:: 1830 EKG- ED physician interpretation (interpreted by me): EKG is somewhat limited due to motion; atrial fibrillation with rapid ventricular response, ventricular rate of 122 bpm, normal QRS duration, normal QT interval, normal axis, inferolateral ST and T wave abnormality, no ST elevation. 2129 EKG-physician interpretation (interpreted by me): Normal sinus rhythm, ventricular rate of 77 bpm, no ectopy, normal GA and QRS intervals, normal QT interval, normal axis, inferolateral ST and T wave abnormality, no ST elevation Medical Decision Making - Medical Decision Making Was pt. sent in by a medical professional or institution (, PA, LAND SURVEY TECHNICIAN, urgent care, hospital, or shelter...) When possible be specific @ -No Did you speak to anyone other than the patient for history (EMS, parent, family, police, friend...)? What history was obtained from this source @ -No Did you review nursing and triage notes (agree or disagree)? Why? @ -I reviewed and agree with nursing and triage notes Were old charts reviewed (outside hosp., previous admission, EMS record, old EKG, old radiological studies, urgent care reports/EKG's, shelter records)? Report findings @ -No old charts were reviewed Differential Diagnosis (chest pain, altered mental status, abdominal pain women, abdominal pain men, vaginal bleeding, weakness, fever, dyspnea, syncope, headach e, dizziness, GI bleed, back pain, seizure, CVA, palpatations, mental health, musculoskeletal)? @ -Differential Weakness: Hypoglycemia, hyperglycemia, DKA, shock, sepsis, hyponatremia, anemia, infec tion, viral illness, VT, ETOH, adverse medicine reaction, overdose, stroke, dysrhythmia, ICH, thyroid disease, dehydration, renal disease, electrolyte abnormality, this is not meant to be an all-inclusive list. EKG interpreted by me (3pts min.). @ -As above X-rays interpreted by me (1pt min.). @ -Chest x-ray was reviewed myself and shows no acute cardiopulmonary disease. I agree with the radiologist's interpretation as above. CT interpreted by me (1pt min.). @ -Noncontrast CT brain/cervical spine was reviewed myself and shows no acute abnormality. I agree with the radiologist interpretation as above. U/S interpreted by me (1pt. min.). @ -None done What testing was considered but not performed or refused? (CT, X-rays, U/S, labs)? Why? @ -None What meds were considered but not given or refused? Why? @ -None Did you discuss the management of the patient with other professionals (pro fessionals i.e. , PA, LAND SURVEY TECHNICIAN, lab, RT, psych nurse, secondary social studies teacher, liner man, teacher, child support officer, rn case management)? Give summary @ -As above. Was smoking cessation discussed for >3mins.? @ -No Was critical care preformed (if so, how long)? @ -Yes, 60 minutes. Were there social determinants of health that impacted care today? How? (Homelessness, low income, unemployed, alcoholism, drug addiction, transportation, low edu. Level, literacy, decrease access to med. care, custodial, rehab)? @ -No Was there de-escalation of care discussed even if they declined (Discuss DNR or withdrawal of care, Hospice)? DNR status @ -No What co-morbidities impacted this encounter? (DM, HTN, Smoking, COPD, CAD, Canc er, CVA, ARF, Chemo, Hep., AIDS, mental health diagnosis, sleep apnea, morbid obesity)? @ -None Was patient admitted / discharged? Hospital course, mention meds given and route, prescriptions, significant lab abnormalities, going to OR and other pertinent info. @ -Patient presented to the ED hypotensive and in atrial fibrillation with rapid ventricular rate. Patient was hydrated with 2 L of normal saline in the ED, and she spontaneously cardioverted to a normal sinus rhythm. Patient's blood pressure has significantly improved since then. Patient was noted to have a lactic acid level of 6.1 on her initial labs, but it has now improved to 1.9 on repeat check. Patient's troponin is elevated, but she denies having any chest pain/pressure or dyspnea. No ST elevation is seen on the patient's EKG, but there is an inferolateral ST and T wave abnormality present. Patient has been treated with a dose of aspirin. Will initiate low intensity heparin anticoagulation in the ED. Patient's CT head/cervical spine imaging is negative. Patient is noted to be influenza A positive. Patient denies being on any anticoagulant medication, however her coags are elevated-will continue to monitor. Will admit the patient to the hospital for cardiac monitoring, serial troponins, cardiology consultation, and further evaluation/management. Dr. Skinner has accepted hospital admission. Patient agrees with this plan. Undiagnosed new problem with uncertain prognosis? @ -No Drug Therapy requiring intensive monitoring for toxicity (Heparin, Nitro, Insulin, Cardizem)? @ -No Were any procedures done? @ -No Diagnosis/symptom? @ -Transient atrial fibrillation with RVR and hypotension Acute, or Chronic, or Acute on Chronic? @ -Default Uncomplicated (without systemic symptoms) or Complicated (systemic symptoms)? @ -Default Side effects of treatment? @ -No Exacerbation, Progression, or Severe Exacerbation? @ -No Poses a threat to life or bodily function? How? (Chest pain, USA, VT, pneumonia, PE, COPD, DKA, ARF, appy, cholecystitis, CVA, Diverticulitis, Homicidal, Suicidal, threat to staff... and all critical care pts) @ -Yes, possibly. Diagnosis/symptom? @ -Influenza A Acute, or Chronic, or Acute on Chronic? @ -Acute Uncomplicated (without systemic symptoms) or Complicated (systemic symptoms)? @ -Default Side effects of treatment? @ -None Exacerbation, Progression, or Severe Exacerbation] @ -No Poses a threat to life or bodily function? @ -No Diagnosis/symptom? @ -Elevated troponin Acute, or Chronic, or Acute on Chronic? @ -Default Uncomplicated (without systemic symptoms) or Complicated (systemic symptoms)? @ -Default Side effects of treatment? @ -None Exacerbation, Progression, or Severe Exacerbation] @ -No Poses a threat to life or bodily function? @ -[Yes, possibly. Diagnosis/symptom? @ -Coagulopathy Acute, or Chronic, or Acute on Chronic? @ -Default Uncomplicated (without systemic symptoms) or Complicated (systemic symptoms)? @ -Default Side effects of treatment? @ -None Exacerbation, Progression, or Severe Exacerbation] @ -No Poses a threat to life or bodily function? @ -No ] - Lab Data Result diagrams: 04/15/24 18:40 04/15/24 18:40 Lab Results 04/15/24 04/15/24 04/15/24 Range/Units 18:40 18:40 18:40 WBC 9.6 (3.8-10.6) k/uL RBC 4.71 (3.80-5.40) m/uL Hgb 15.5 (11.4-16.0) gm/dL Hct 46.3 H (34.0-46.0) % MCV 98.4 (80.0-100.0) fL MCH 32.9 (25.0-35.0) pg MCHC 33.4 (31.0-37.0) g/dL RDW 14.5 (11.5-15.5) % Plt Count 247 (150-450) k/uL MPV 7.8 Neutrophils % 84 % Lymphocytes % 10 % Monocytes % 4 % Eosinophils % 0 % Basophils % 0 % Neutrophils # 8.0 H (1.3-7.7) k/uL Lymphocytes # 1.0 (1.0-4.8) k/uL Monocytes # 0.4 (0-1.0) k/uL Eosinophils # 0.0 (0-0.7) k/uL Basophils # 0.0 (0-0.2) k/uL Macrocytosis Slight PT 18.6 H (10.0-12.5) sec INR 1.8 H (<1.2) APTT 41.3 H (22.0-30.0) sec Sodium 135 L (137-145) mmol/L Potassium 3.7 (3.5-5.1) mmol/L Chloride 103 (98-107) mmol/L Carbon Dioxide 17 L (22-30) mmol/L Anion Gap 15 mmol/L BUN 38 H (7-17) mg/dL Creatinine 1.54 H (0.52-1.04) mg/dL Est GFR (CKD-EPI)AfAm 38 (>60 ml/min/1.73 sqM) Est GFR (CKD-EPI)NonAf 33 (>60 ml/min/1.73 sqM) Glucose 154 H (74-99) mg/dL Lactic Ac Sepsis Rflx Plasma Lactic Acid Jerry (0.7-2.0) mmol/L Calcium 8.6 (8.4-10.2) mg/dL Magnesium 2.0 (1.6-2.3) mg/dL Total Bilirubin 1.3 (0.2-1.3) mg/dL AST 68 H (14-36) U/L ALT 32 (4-34) U/L Alkaline Phosphatase 87 (38-126) U/L Ammonia (<30) umol/L Troponin I (0.000-0.034) ng/mL NT-Pro-B Natriuret Pep 9550 pg/mL Total Protein 7.0 (6.3-8.2) g/dL Albumin 4.2 (3.5-5.0) g/dL TSH 5.370 H (0.465-4.680) mIU/L Free T4 (0.78-2.19) ng/dL Serum Alcohol <10 mg/dL Influenza Type A (PCR) (Not Detectd) Influenza Type B (PCR) (Not Detectd) RSV (PCR) (Not Detectd) SARS-CoV-2 (PCR) (Not Detectd) 04/15/24 04/15/24 04/15/24 Range/Units 18:40 18:40 18:40 WBC (3.8-10.6) k/uL RBC (3.80-5.40) m/uL Hgb (11.4-16.0) gm/dL Hct (34.0-46.0) % MCV (80.0-100.0) fL MCH (25.0-35.0) pg MCHC (31.0-37.0) g/dL RDW (11.5-15.5) % Plt Count (150-450) k/uL MPV Neutrophils % % Lymphocytes % % Monocytes % % Eosinophils % % Basophils % % Neutrophils # (1.3-7.7) k/uL Lymphocytes # (1.0-4.8) k/uL Monocytes # (0-1.0) k/uL Eosinophils # (0-0.7) k/uL Basophils # (0-0.2) k/uL Macrocytosis PT (10.0-12.5) sec INR (<1.2) APTT (22.0-30.0) sec Sodium (137-145) mmol/L Potassium (3.5-5.1) mmol/L Chloride (98-107) mmol/L Carbon Dioxide (22-30) mmol/L Anion Gap mmol/L BUN (7-17) mg/dL Creatinine (0.52-1.04) mg/dL Est GFR (CKD-EPI)AfAm (>60 ml/min/1.73 sqM) Est GFR (CKD-EPI)NonAf (>60 ml/min/1.73 sqM) Glucose (74-99) mg/dL Lactic Ac Sepsis Rflx Plasma Lactic Acid Jerry 6.1 H* (0.7-2.0) mmol/L Calcium (8.4-10.2) mg/dL Magnesium (1.6-2.3) mg/dL Total Bilirubin (0.2-1.3) mg/dL AST (14-36) U/L ALT (4-34) U/L Alkaline Phosphatase (38-126) U/L Ammonia <9 (<30) umol/L Troponin I 1.300 H* (0.000-0.034) ng/mL NT-Pro-B Natriuret Pep pg/mL Total Protein (6.3-8.2) g/dL Albumin (3.5-5.0) g/dL TSH (0.465-4.680) mIU/L Free T4 0.96 (0.78-2.19) ng/dL Serum Alcohol mg/dL Influenza Type A (PCR) (Not Detectd) Influenza Type B (PCR) (Not Detectd) RSV (PCR) (Not Detectd) SARS-CoV-2 (PCR) (Not Detectd) 04/15/24 04/15/24 04/15/24 Range/Units 19:34 19:43 21:41 WBC (3.8-10.6) k/uL RBC (3.80-5.40) m/uL Hgb (11.4-16.0) gm/dL Hct (34.0-46.0) % MCV (80.0-100.0) fL MCH (25.0-35.0) pg MCHC (31.0-37.0) g/dL RDW (11.5-15.5) % Plt Count (150-450) k/uL MPV Neutrophils % % Lymphocytes % % Monocytes % % Eosinophils % % Basophils % % Neutrophils # (1.3-7.7) k/uL Lymphocytes # (1.0-4.8) k/uL Monocytes # (0-1.0) k/uL Eosinophils # (0-0.7) k/uL Basophils # (0-0.2) k/uL Macrocytosis PT (10.0-12.5) sec INR (<1.2) APTT (22.0-30.0) sec Sodium (137-145) mmol/L Potassium (3.5-5.1) mmol/L Chloride (98-107) mmol/L Carbon Dioxide (22-30) mmol/L Anion Gap mmol/L BUN (7-17) mg/dL Creatinine (0.52-1.04) mg/dL Est GFR (CKD-EPI)AfAm (>60 ml/min/1.73 sqM) Est GFR (CKD-EPI)NonAf (>60 ml/min/1.73 sqM) Glucose (74-99) mg/dL Lactic Ac Sepsis Rflx Y Plasma Lactic Acid Jerry (0.7-2.0) mmol/L Calcium (8.4-10.2) mg/dL Magnesium (1.6-2.3) mg/dL Total Bilirubin (0.2-1.3) mg/dL AST (14-36) U/L ALT (4-34) U/L Alkaline Phosphatase (38-126) U/L Ammonia (<30) umol/L Troponin I 0.827 H* (0.000-0.034) ng/mL NT-Pro-B Natriuret Pep pg/mL Total Protein (6.3-8.2) g/dL Albumin (3.5-5.0) g/dL TSH (0.465-4.680) mIU/L Free T4 (0.78-2.19) ng/dL Serum Alcohol mg/dL Influenza Type A (PCR) Detected A (Not Detectd) Influenza Type B (PCR) Not Detected (Not Detectd) RSV (PCR) Not Detected (Not Detectd) SARS-CoV-2 (PCR) Not Detected (Not Detectd) 04/15/24 Range/Units 21:47 WBC (3.8-10.6) k/uL RBC (3.80-5.40) m/uL Hgb (11.4-16.0) gm/dL Hct (34.0-46.0) % MCV (80.0-100.0) fL MCH (25.0-35.0) pg MCHC (31.0-37.0) g/dL RDW (11.5-15.5) % Plt Count (150-450) k/uL MPV Neutrophils % % Lymphocytes % % Monocytes % % Eosinophils % % Basophils % % Neutrophils # (1.3-7.7) k/uL Lymphocytes # (1.0-4.8) k/uL Monocytes # (0-1.0) k/uL Eosinophils # (0-0.7) k/uL Basophils # (0-0.2) k/uL Macrocytosis PT (10.0-12.5) sec INR (<1.2) APTT (22.0-30.0) sec Sodium (137-145) mmol/L Potassium (3.5-5.1) mmol/L Chloride (98-107) mmol/L Carbon Dioxide (22-30) mmol/L Anion Gap mmol/L BUN (7-17) mg/dL Creatinine (0.52-1.04) mg/dL Est GFR (CKD-EPI)AfAm (>60 ml/min/1.73 sqM) Est GFR (CKD-EPI)NonAf (>60 ml/min/1.73 sqM) Glucose (74-99) mg/dL Lactic Ac Sepsis Rflx Plasma Lactic Acid Jerry 1.9 (0.7-2.0) mmol/L Calcium (8.4-10.2) mg/dL Magnesium (1.6-2.3) mg/dL Total Bilirubin (0.2-1.3) mg/dL AST (14-36) U/L ALT (4-34) U/L Alkaline Phosphatase (38-126) U/L Ammonia (<30) umol/L Troponin I (0.000-0.034) ng/mL NT-Pro-B Natriuret Pep pg/mL Total Protein (6.3-8.2) g/dL Albumin (3.5-5.0) g/dL TSH (0.465-4.680) mIU/L Free T4 (0.78-2.19) ng/dL Serum Alcohol mg/dL Influenza Type A (PCR) (Not Detectd) Influenza Type B (PCR) (Not Detectd) RSV (PCR) (Not Detectd) SARS-CoV-2 (PCR) (Not Detectd) - Radiology Data Chest x-ray: No acute cardiopulmonary disease/process. Noncontrast CT brain/cervical spine: 1. No acute intracranial process. 2. No acute fracture or traumatic subluxation of the cervical spine. Critical Care Time Critical Care Time: Yes Total Critical Care Time: 60 Disposition Clinical Impression: Generalized weakness, Atrial fibrillation with RVR, Hypotension, Elevated troponin, Coagulopathy, Influenza A, Renal insufficiency Disposition: ADMITTED IP TO THIS HOSP Condition: Stable Is patient prescribed a controlled substance at d/c from ED?: No Referrals: Mack Traylor DO [Primary Care Provider] - 1-2 days Time of Disposition: 23:04
[2024-04-15] MEDS: SODIUM CHLORIDE 0.9% 1,000 ML IV STA (18:45)
[2024-04-15 19:04] LABS: Basophils % (A) 0 %; Eosinophils % (A) 0 %; HCT 46.3 % (34.0-46.0); HGB 15.5 gm/dL (11.4-16.0); Lymphocytes % (A) 10 %; MCH 32.9 pg (25.0-35.0); MCHC 33.4 g/dL (31.0-37.0); MCV 98.4 fL (80.0-100.0); Macrocytosis Slight; Mean Platelet Volume 7.8; Monocytes # (A) 0.4 k/uL (0-1.0); Monocytes % (A) 4 %; Neutrophils % (A) 84 %; Platelet Count 247 k/uL (150-450); RBC 4.71 m/uL (3.80-5.40); RDW 14.5 % (11.5-15.5); WBC 9.6 k/uL (3.8-10.6)
[2024-04-15 19:17] LABS: INR 1.8 (<1.2); Partial Thromboplastin Time 41.3 sec (22.0-30.0); Prothrombin Time 18.6 sec (10.0-12.5)
[2024-04-15 19:21] LABS: AST 68 U/L (14-36); African American GFR (CKD) 38 (>60 ml/min/1.73 sqM); Albumin 4.2 g/dL (3.5-5.0); Alcohol <10 mg/dL; Alkaline Phosphatase 87 U/L (38-126); Anion Gap 15 mmol/L; Blood Urea Nitrogen 38 mg/dL (7-17); Calcium 8.6 mg/dL (8.4-10.2); Carbon Dioxide 17 mmol/L (22-30); Chloride 103 mmol/L (98-107); Glucose 154 mg/dL (74-99); Non-African American GFR(CKD) 33 (>60 ml/min/1.73 sqM); Potassium 3.7 mmol/L (3.5-5.1); Sodium 135 mmol/L (137-145); Total Bilirubin 1.3 mg/dL (0.2-1.3)
--- NOTE | 2024-04-15 19:24 | CT ---
EXAMINATION TYPE: CT brain cspine wo con DATE OF EXAM: 04/15/2024 7:16 PM COMPARISON: None. CLINICAL INDICATION: Female, 73 years old with history of AMS, fall; AMS, Fall. TECHNIQUE: Brain: Multiple axial CT images of the brain were obtained without IV contrast. Cspine: Axial CT images from the skull base to the inferior aspect of T2 we obtained without intraven ous contrast. Coronal and sagittal reformatted images were also reviewed. . CT DLP: 1241.8 mGycm, Automated exposure control for dose reduction was used. FINDINGS: Brain: Extra-axial spaces: No abnormal extra-axial fluid collections. Ventricular system: Dilatation in proportion to cerebral atrophy. Cerebral parenchyma: No acute intraparenchymal hemorrhage or mass effect. The perez-white junction is well differentiated. Scattered hypoattenuating areas are seen within the white matter. Cerebellum: Unremarkable. Mass effect: No evidence of midline shift. Intracranial vasculature: unremarkable Soft tissues: Normal. Calvarium/osseous structures: No depressed skull fracture. Paranasal sinuses and mastoid air cells: Clear. Visualized orbits: Orbital contents are intact. Cervical spine: Fracture: None. Osseous structures: Multilevel intervertebral disc space loss and anterior osteophyte formation. Vertebral alignment: Within normal limits. Spinal canal/Neural Foramina: Multilevel uncovertebral hypertrophy/facet arthropathy in combination w ith posterior disc osteophyte complexes cause varying degrees of neural foraminal and spinal canal na rrowing. Spinal canal not well evaluated due to streak artifact. Neck soft tissues: Prevertebral soft tissues are within normal limits. Other: The airway is patent. The lung apices are clear. IMPRESSION: 1. No acute intracranial process. 2. No acute fracture or traumatic subluxation of the cervical spine. [facility], , 04/15/2024 7:21 PM
[2024-04-15 19:27] LABS: ALT 32 U/L (4-34)
[2024-04-15 19:29] LABS: NT-Pro-B-Type Natriuretic Pept 9550 pg/mL
[2024-04-15 19:32] LABS: Lactic Acid, Venous 6.1 mmol/L (0.7-2.0)
[2024-04-15] MEDS: SODIUM CHLORIDE 0.9% 500 ML 500 ML IV ONE ×2 (19:36→19:41)
--- NOTE | 2024-04-15 19:36 | XR ---
EXAMINATION TYPE: XR chest 1V portable DATE OF EXAM: 04/15/2024 7:14 PM COMPARISON: Chest radiographs from CLINICAL INDICATION: Female, 73 years old with history of weakness; [facility] TECHNIQUE: XR chest 1V portable Frontal view of the chest. FINDINGS: Lungs/Pleura: There is no evidence of pleural effusion, focal consolidation, or pneumothorax. Pulmonary vascularity: Unremarkable. Heart/mediastinum: Cardiomediastinal silhouette is unremarkable. Musculoskeletal: No acute osseous pathology. Other findings: None IMPRESSION: No acute cardiopulmonary disease/process. [facility], , 04/15/2024 7:34 PM
[2024-04-15] MEDS: ASPIRIN 81 MG PO STA (21:25)
[2024-04-15] MEDS ORDERED: HEPARIN SODIUM 1,000 UN/ML (10ML VL) IV PRN (22:22)
[2024-04-15] MEDS ORDERED: NALOXONE 0.4 MG/ML 1 ML VIAL IV PRN (23:04)
[2024-04-15] MEDS: HEPARIN SODIUM 1,000 UN/ML (10ML VL) IV ONE (23:06)
[2024-04-15] MEDS: HEPARIN SOD,PORK IN 0.45% NACL 25,000 UNIT in 0.45% NACL 1 250ML.BAG IV SCH (23:07)
[2024-04-16 00:14] LABS: Amorphous Sediment,Urine Few /hpf; Appearance,Urine Cloudy (Clear); Bilirubin,Urine Negative (Negative); Blood,Urine Small (Negative); Color,Urine Yellow; Glucose,Urine (UA) Negative (Negative); Hyaline Casts,Urine 24 /lpf (0-2); Ketones,Urine Negative (Negative); Leukocyte Esterase,Urine Negative (Negative); Mucus,Urine Rare /hpf; Nitrite,Urine Negative (Negative); PH, Urine 5.5 (5.0-8.0); Protein,Urine 2+ (Negative); RBC,Urine 2 /hpf (0-5); Specific Gravity,Urine 1.022 (1.001-1.035); Squamous Epithelial Cell,Urine 5 /hpf (0-4); WBC,Urine 3 /hpf (0-5)
[2024-04-16 00:16] LABS: Amphetamine Screen,Urine Not Detected (NotDetected); Barbiturate Screen,Urine Not Detected (NotDetected); Benzodiazepines Screen,Urine Not Detected (NotDetected); Cocaine Screen,Urine Not Detected (NotDetected); Methadone Screen, Urine Not Detected (NotDetected); Opiate Screen,Urine Detected (NotDetected); Oxycodone Screen, Urine Not Detected (NotDetected); Phencyclidine Screen,Urine Not Detected (NotDetected); Tricyclic Antidepressant,Urine Not Detected (NotDetected); Urn Cannabinoid Scrn Detected (NotDetected)
--- NOTE | 2024-04-16 01:49 | P.HPIM ---
History of Present Illness H&P Date: 04/15/24 Chief Complaint: Generalized weakness Patient is a 73-year-old female with dementia that was diagnosed 15 years ago, COPD (not on home oxygen), history of CVA/TIA, GERD, hypertension, liver disease, and history of pneumonia presented to the emergency department with generalized weakness. Per patient's , she started developing generalized weakness over the past 5 days. Patient's recently got sick last Sunday and patient started developing a fever on Sunday morning. She has had a long history of dehydration. Patient's was able to convince her to come to the emergency department for evaluation. When they arrived at the hospital, patient had a fall when she was trying to exit from her 's truck. Per patient did not hit her head, lose consciousness, passed out. Patient was found to be hypotensive and tachycardic when she initially presented to the ED with blood pressure of 85/58 and heart rate of 121. This improved after patient was given 2 boluses of normal saline. Patient was examined at bedside. Reports feeling generalized weakness. Reports feeling fever and chills. Per , patient also has a history of chronic constipation but had 2 episodes of watery diarrhea this morning. Patient denies chest pain, shortness of breath, belly pain, nausea/vomiting, tingling/numbness in upper or lower extremity, melena/hematochezia, coughing/runny nose/sore throat, dizziness/lightheadedness. ED documentation reviewed. In the ED patient was treated with 2 boluses of normal saline, aspirin 324 mg p.o. x 1, heparin 3000 unit IV x 1 Vitals on admission temperature 97.8, blood pressure 80, respiratory rate 17, BP 105/67, O2 sat 96% on room air Initial EKG at 6:31 PM showed atrial fibrillation with rapid ventricular response with a ventricular rate of 122 bpm, QTc interval of 397 ms, ST deviation and moderate T wave abnormality consider lateral ischemia and inferior ischemia. Subsequent EKG at 9:30 PM showed sinus rhythm with ventricular rate of 77 bpm, QTc 460 ms, ST deviation and moderate T wave abnormality consider anterolateral ischemia and inferior ischemia CXR shows no acute cardiopulmonary disease/process CT of brain and C-spine showed no acute intracranial process and no acute fracture or traumatic subluxation of the cervical spine. Labs on admission show WBC of 9.6, hemoglobin 15.5, hematocrit 46.3, platelet 247, neutrophils 8.0, PT 18.6, PTT 41.3, INR 1.8, sodium 135, potassium 3.7, chloride 103, carbon dioxide 17, BUN 38, creatinine 1.54, glucose 154, lactic acid 6.1, AST 68, ALT 33, alkaline phosphatase 87, troponin of 1.3 and 0.827, BNP of 9550, TSH 5.37, free T4 0.96, serum alcohol less than 10, tested positive for influenza type a UA shows Review of systems: Pertinent positives and negatives as discussed in HPI, a complete review of systems was performed and all other systems are negative. PMH: dementia that was diagnosed 15 years ago, COPD, history of CVA/TIA, GERD, hypertension, liver disease, and history of pneumonia PSH: Adenectomy, appendectomy, back surgery, hysterectomy, tonsillectomy FMH: Father has a history of bladder cancer but from a stroke. Mother has a history of diabetes mellitus and history of myocardial infarction. Allergies: Cefuroxime, diphenhydramine, sulfonamide antibiotics, NSAIDs Social history: Tobacco: Never smoker Alcohol: Daily heavy drinker Recreational drugs: No drug use Travel: No travel use Sick contacts: got sick recently Physical examination: Vital signs reviewed General: nontoxic, no distress, appears at stated age, well-appearing Derm: warm, dry, intact Head: atraumatic, normocephalic, symmetric Eyes: EOMI, anicteric sclera Mouth: no lip lesion, mucus membranes moist Cardiovascular: S1 S2 reg, no murmur Lungs: CTA bilateral, no rhonchi, no rales, no accessory muscle use Abdominal: soft, non-tender to palpation, nondistended Extremities: No cyanosis, clubbing, or pedal edema. Neuro: Alert, Oriented to person and place, not to time, Gross neurological examination did not reveal any focal deficits. Cranial nerves II through XII grossly intact. Bilateral upper and lower extremity muscle strength intact 5 out of 5 and slightly reduced sensation to light touch in the left lower extremity. Psych: appropriate affect Assessment/Plan: 73-year-old female with asthma, COPD, history of CVA/TIA, GERD, hypertension, liver disease, and history of pneumonia presented to the emergency department with generalized weakness. Patient will be admitted to inpatient medicine service. Active: #. NSTEMI Patient did not endorse chest pain Troponin 1.3 elevated and 0.827 and 0.880 Trend troponins Restart home diltiazem 120 mg daily and Plavix 75 mg daily Cardiac monitoring Consult cardiology BNP 9550 elevated Order echocardiogram Continue IV heparin ACS protocol cardiac cath technologist Initial EKG at 6:31 PM showed atrial fibrillation with rapid ventricular response with a ventricular rate of 122 bpm, QTc interval of 397 ms, ST deviation and moderate T wave abnormality consider lateral ischemia and inferior ischemia. Subsequent EKG at 9:30 PM showed sinus rhythm with ventricular rate of 77 bpm, QTc 460 ms, ST deviation and moderate T wave abnormality consider anterolateral ischemia and inferior ischemia #. atrial fibrillation with rapid ventricular response EKG at 6:30 PM showed atrial fibrillation with rapid ventricular response with a ventricular rate of 122 bpm Consult cardiology Start metoprolol heart rate 12.5 p.o. twice daily continue deltiazem po , patient converted spontaneously xarelto on hold ,continue with heparin drip for ACS #. Hyponatremia Sodium of 135 Initiate normal saline at 75 cc an hour Monitor morning CMP #. JOYCELYN, likely secondary to dehydration BUN 38, creatinine 1.54 elevated Initiate normal saline at 75 cc an hour s/p 2 L boluses normal saline Monitor morning CMP monitor urine output #. Elevated neutrophils Normal WBC count 9.6 with elevated neutrophils at 8.0 Continue monitor morning CBC #. Hyperglycemia, with no documented history of diabetes mellitus Initiate low-dose sliding scale insulin Obtain hemoglobin A1c #. Lactic acidosis, resolved Lactic acid 6.1 2 boluses of normal saline were given by the ED Repeat lactic acid 1.9 #. Elevated AST elevated AST 68 with normal ALT 32 and alkaline phosphatase 87 Continue to monitor morning CMP #. Subclinical Hypothyroidism TSH 5.37 elevated Free T 4 0.9 within normal limits Likely as result of recent illness and dehydration consider OP follow up in 4-6 weeks #. Prolonged QTc interval QTc 460 ms Magnesium 2.0 Recheck magnesium #. Positive for influenza type A Supportive care out of the window for Tamiflu , symptoms started 4 days ago Chronic: #. COPD Restart Symbicort 2 puff twice daily duo neb PRN for SOB supplemental oxygen as needed , not on home Oxygen #. GERD Restart Protonix 40 mg daily #. Hypertension Restart losartan 25 mg daily F: No restrictions E: Replete as needed N: Heart healthy diet A: Wheelchair DVT prophylaxis: on heparin drip per ACS protocol The patient is admitted with an anticipated more than 2 midnight stay for evaluation of generalized weakness CODE STATUS: Full code Discussed with: Patient Anticipated discharge place: Home I have seen and evaluated the patient today. I Discussed the case with the resident and agree with the resident's findings I edited the assessment and plan as necessary as documented in the resident's note. Past Medical History Past Medical History: Asthma, COPD, CVA/TIA, GERD/Reflux, Hypertension, Liver Disease, Pneumonia Additional Past Medical History / Comment(s): vertigo, HEP -C THINKS SHE MAY HAVE GOTTEN IT IN 1974 HAD RUPTURED TUBAL AND RECIEVED BLOOD TRANSFUSION, STROKE 2001 NO RESIDUAL PROBLEMS, PALPITATION,INCONT OF URINE, VERTIGO. History of Any Multi-Drug Resistant Organisms: C-DIFF Date of last positivie culture/infection: 12/07/14 MDRO Source:: Stool Past Surgical History: Adenoidectomy, Appendectomy, Back Surgery, Hysterectomy, Tonsillectomy Additional Past Surgical History / Comment(s): IST SX LAMENECTOMY, 2ND FUSION THINSK SHE HAS A DEBORAH INPLACE, CATARACTS [employer]TE LENS IMPLANTS, TUBAL IN 1974, LIVER BIOPSY NEG CANCER BUT POSITIVE FOR HEP C. Past Anesthesia/Blood Transfusion Reactions: No Reported Reaction Past Psychological History: Depression Smoking Status: Never smoker Past Alcohol Use History: Daily, Heavy Past Drug Use History: None Reported - Past Family History Father Family Medical History: Cancer Additional Family Medical History / Comment(s): BLADDER CANCER BUT FROM A STROKE Mother Family Medical History: Diabetes Mellitus, Myocardial Infarction (DC) Additional Family Medical History / Comment(s): HEART PROBLEMS Medications and Allergies Home Medications Medication Instructions Recorded Confirmed Type Budesonide/Formoterol Fumarate 2 puff INHALATION RT-BID 10/29/14 04/15/24 History [Symbicort 160-4.5 Mcg Inhaler] Clopidogrel [Plavix] 75 mg PO DAILY 10/29/14 04/15/24 History Atorvastatin [Lipitor] 20 mg PO DAILY 04/15/24 04/15/24 History DULoxetine HCL [Cymbalta] 30 mg PO DAILY 04/15/24 04/15/24 History Losartan [Cozaar] 25 mg PO DAILY 04/15/24 04/15/24 History Mirabegron [Myrbetriq] 50 mg PO DAILY 04/15/24 04/15/24 History Morphine Sulfate 15 mg PO TID 04/15/24 04/15/24 History Pantoprazole [Protonix] 40 mg PO DAILY 04/15/24 04/15/24 History Rivaroxaban [Xarelto] 20 mg PO DAILY 04/15/24 04/15/24 History dilTIAZem HCL [Cardizem CD] 120 mg PO DAILY 04/15/24 04/15/24 History Allergies Allergy/AdvReac Type Severity Reaction Status Date / Time cefuroxime axetil Allergy Unknown Verified 04/15/24 19:42 [From Ceftin] diphenhydramine HCl Allergy Rash/Hives Verified 04/15/24 19:42 [From Benadryl] Sulfa (Sulfonamide Allergy Rash/Hives Verified 04/15/24 19:42 Antibiotics) NSAIDS (Non-Steroidal AdvReac Nausea Verified 04/15/24 19:42 Anti-Inflamma Physical Exam Vitals: Vital Signs Temp Pulse Resp BP Pulse Ox 04/15/24 21:38 78 16 102/74 95 04/15/24 19:57 75 16 116/64 100 04/15/24 19:42 130 H 15 91/62 94 L 04/15/24 19:37 121 H 18 85/58 97 04/15/24 19:32 131 H 15 85/58 98 04/15/24 19:29 133 H 17 97/75 90 L 04/15/24 18:41 117 H 18 91/40 98 04/15/24 18:39 130 H 18 102/57 98 04/15/24 18:17 97.2 F L 65 16 62/49 97 Intake and Output 04/15/24 04/15/24 04/16/24 14:59 22:59 06:59 Other: Weight 50.802 kg Results CBC & Chem 7: 04/15/24 18:40 04/15/24 18:40 Labs: Abnormal Lab Results - Last 24 Hours (Table) 04/15/24 04/15/24 04/15/24 Range/Units 18:40 18:40 18:40 Hct 46.3 H (34.0-46.0) % Neutrophils # 8.0 H (1.3-7.7) k/uL PT 18.6 H (10.0-12.5) sec INR 1.8 H (<1.2) APTT 41.3 H (22.0-30.0) sec Sodium 135 L (137-145) mmol/L Carbon Dioxide 17 L (22-30) mmol/L BUN 38 H (7-17) mg/dL Creatinine 1.54 H (0.52-1.04) mg/dL Glucose 154 H (74-99) mg/dL Plasma Lactic Acid Jerry (0.7-2.0) mmol/L AST 68 H (14-36) U/L Troponin I (0.000-0.034) ng/mL TSH 5.370 H (0.465-4.680) mIU/L Influenza Type A (PCR) (Not Detectd) 04/15/24 04/15/24 04/15/24 Range/Units 18:40 18:40 19:43 Hct (34.0-46.0) % Neutrophils # (1.3-7.7) k/uL PT (10.0-12.5) sec INR (<1.2) APTT (22.0-30.0) sec Sodium (137-145) mmol/L Carbon Dioxide (22-30) mmol/L BUN (7-17) mg/dL Creatinine (0.52-1.04) mg/dL Glucose (74-99) mg/dL Plasma Lactic Acid Jerry 6.1 H* (0.7-2.0) mmol/L AST (14-36) U/L Troponin I 1.300 H* (0.000-0.034) ng/mL TSH (0.465-4.680) mIU/L Influenza Type A (PCR) Detected A (Not Detectd) 04/15/24 Range/Units 21:41 Hct (34.0-46.0) % Neutrophils # (1.3-7.7) k/uL PT (10.0-12.5) sec INR (<1.2) APTT (22.0-30.0) sec Sodium (137-145) mmol/L Carbon Dioxide (22-30) mmol/L BUN (7-17) mg/dL Creatinine (0.52-1.04) mg/dL Glucose (74-99) mg/dL Plasma Lactic Acid Jerry (0.7-2.0) mmol/L AST (14-36) U/L Troponin I 0.827 H* (0.000-0.034) ng/mL TSH (0.465-4.680) mIU/L Influenza Type A (PCR) (Not Detectd)
[2024-04-16] MEDS ORDERED: DEXTROSE 50% SYRINGE 50 ML IVP PRN ×2 (02:35)
[2024-04-16] MEDS ORDERED: IPRATROPIUM-ALBUTEROL 3 ML NEB INHALATION PRN (02:37)
[2024-04-16] MEDS: SODIUM CHLORIDE 0.9% 1,000 ML IV SCH (02:58)
[2024-04-16 06:18] LABS: Basophils % (A) 0 %; Eosinophils % (A) 0 %; HCT 36.1 % (34.0-46.0); Lymphocytes # (A) 1.3 k/uL (1.0-4.8); Lymphocytes % (A) 22 %; MCH 33.5 pg (25.0-35.0); MCHC 34.2 g/dL (31.0-37.0); MCV 97.8 fL (80.0-100.0); Mean Platelet Volume 8.3; Monocytes # (A) 0.3 k/uL (0-1.0); Monocytes % (A) 5 %; Neutrophils # (A) 4.2 k/uL (1.3-7.7); Neutrophils % (A) 70 %; Platelet Count 190 k/uL (150-450); RBC 3.69 m/uL (3.80-5.40); RDW 14.6 % (11.5-15.5); WBC 5.9 k/uL (3.8-10.6)
[2024-04-16 06:29] LABS: HGB 12.4 gm/dL (11.4-16.0)
[2024-04-16 06:38] LABS: INR 1.2 (<1.2); Prothrombin Time 12.8 sec (10.0-12.5)
[2024-04-16 06:40] LABS: Partial Thromboplastin Time 162.1 sec (22.0-30.0)
[2024-04-16 07:01] LABS: ALT 26 U/L (4-34); AST 59 U/L (14-36); African American GFR (CKD) 49 (>60 ml/min/1.73 sqM); Albumin 3.3 g/dL (3.5-5.0); Alkaline Phosphatase 80 U/L (38-126); Anion Gap 5 mmol/L; Blood Urea Nitrogen 47 mg/dL (7-17); Calcium 8.2 mg/dL (8.4-10.2); Carbon Dioxide 23 mmol/L (22-30); Chloride 106 mmol/L (98-107); Glucose 93 mg/dL (74-99); Non-African American GFR(CKD) 43 (>60 ml/min/1.73 sqM); Potassium 3.2 mmol/L (3.5-5.1); Sodium 134 mmol/L (137-145); Total Bilirubin 0.7 mg/dL (0.2-1.3); Total Protein 5.8 g/dL (6.3-8.2)
[2024-04-16] MEDS: INSULIN ASPART (NovoLOG) 100 UNIT/ML VIAL SQ SCH (07:29)
[2024-04-16 07:30] LABS: Glucose,Whole Blood 103 mg/dL (70-110)
[2024-04-16] MEDS: SYMBICORT 160-4.5 MCG INHALER INHALATION SCH (07:45)
[2024-04-16] MEDS: PANTOPRAZOLE 40 MG TABLET PO SCH (08:11)
[2024-04-16] MEDS: DILTIAZEM CD 120 MG CAP.ER.24H PO SCH (08:12)
[2024-04-16] MEDS: CLOPIDOGREL 75 MG TAB PO SCH (08:12)
[2024-04-16] MEDS: ATORVASTATIN 20 MG TAB PO SCH (09:12)
[2024-04-16] MEDS: DULoxetine HCL 30 MG CAPSULE.DR PO SCH (09:12)
--- NOTE | 2024-04-16 10:25 | CONS ---
CONSULTATION CHIEF COMPLAINT: Generalized weakness over the past 5 days. HISTORY OF PRESENT ILLNESS: This is a 73-year-old lady with history of COPD, CVA, hypertension, GERD, liver disease, and history of memory impairment, who presented to hospital not feeling well for the last 5 days. Her got sick last Sunday and the patient started developing fever on Sunday morning and came to the hospital as the was able to convince her to bring her in. We have been consulted because of elevated troponin. On her initial presentation, the patient was hypotensive, tachycardic, and responded to fluid boluses. Her predominant symptom is in the form of generalized weakness. Her initial EKG showed atrial fibrillation with rapid ventricular rate. She subsequently converted to sinus rhythm and is in sinus rhythm. There are nonspecific ST-T wave changes. She does not have any chest pain. She is not short of breath and her troponins were 1.3, 0.8, 0.8, and 0.6. BUN is 47. Creatinine was 1.5 on the initial admission and has improved. Hemoglobin is 12.4, platelet count is 190. The patient tested positive for influenza A. The patient's symptoms of fever, generalized weakness, not feeling well, and the elevated troponins are probably related to it. The atrial fibrillation and rapid ventricular rate could have also introduced a component of supply-demand mismatch and the renal insufficiency is also contributing to the elevated troponin. At the time of my evaluation, she appears comfortable at rest, stable hemodynamically and free of any symptoms. She is a poor historian. It is unclear if she has any prior cardiac history. PAST MEDICAL HISTORY AND SURGICAL HISTORY: Significant for appendectomy, back surgery, hysterectomy, tonsillectomy, COPD, CVA, hypertension, liver disease, and pneumonia. SOCIAL HISTORY: There is no history of smoking. There is history of alcohol abuse. REVIEW OF SYSTEMS: I am unable to obtain from the patient, who appears pleasantly confused. PHYSICAL EXAMINATION: VITAL SIGNS: She is afebrile. Heart rate is 67 beats per minute. Blood pressure is 106/67, respiratory rate is 14, O2 saturation is 97%. NECK: There is no jugular venous distention. CHEST: Reveals good air entry bilaterally. HEART: Reveals first and second heart sounds. Has a systolic murmur at the apex. ABDOMEN: Soft. EXTREMITIES: Did not reveal any edema. Peripheral pulses are felt. LABS: 1. Show that she is influenza A positive. Troponins are elevated. 2. EKG: The initial EKG showed atrial fibrillation with rapid ventricular rate. The subsequent EKG showed that she converted to sinus rhythm. ASSESSMENT AND PLAN: 1. Non ST-segment elevation myocardial infarction, probably due to a combination of factors including recent influenza A infection, renal insufficiency, and atrial fibrillation with rapid ventricular rate. 2. Paroxysmal atrial fibrillation. 3. History of cerebrovascular accident. 4. History of hypertension. PLAN: The patient has history of atrial fibrillation and is currently on Xarelto. I am going to obtain a 2D echo. Continue her on heparin that she is on for today and revisit the issues tomorrow morning. If we do not see any significant wall motion abnormalities, we will consider obtaining a stress test and if there is ischemia, then consider cardiac cath. If she has significant wall motion abnormalities, we may proceed with cardiac catheterization when she is more stable. LAYA / [place]: [id number] /
[2024-04-16] MEDS ORDERED: LORazepam 0.5 MG TAB PO PRN (11:22)
[2024-04-16] MEDS ORDERED: LORazepam 1 MG TAB PO PRN ×3 (11:22)
--- NOTE | 2024-04-16 11:44 | P.PN ---
Subjective Progress Note Date: 04/16/24 Hospital course: Patient is a very pleasant 73-year-old female with a past medical history of hypertension, hyperlipidemia, CVA, paroxysmal atrial fibrillation on Xarelto, COPD not home oxygen dependent, hepatitis C, daily alcohol abuse reportedly drinking half of 1/5 of liquor per day, and memory impairment.. She presented to the emergency department on 04/15/2024 with a chief complaint of generalized weakness x 5 days and concerns of severe dehydration. Upon arrival to our facility, patient underwent evaluation in the emergency department. Vital signs upon arrival show patient to be hypotensive with blood pressure of 62/49, heart rate 130, respiratory rate 18, temp 97.2 F, and SpO2 of 97% on room air. EKG was completed showing atrial fibrillation with RVR at 122 bpm with T wave inversion in inferior lateral leads and moderate ST depression in inferior lateral leads.. Chest x-ray completed negative for acute cardiopulmonary process. CT head and cervical spine negative for acute process. Labs completed and reviewed. CBC showing elevated hematocrit of 46.3. Coagulation profile showing elevated PT of 18.6, INR 1.8, and PTT of 41.3. BMP showing sodium 135, bicarb of 17 and elevated anion gap of 15 and acute kidney injury with BUN of 3 8, creatinine of 1.54, and GFR of 34 with baseline creatinine of 0.8.. Blood glucose 154. Initial lactic acid 6.1. Magnesium 2.0. Liver profile showing elevated AST of 68 otherwise normal findings. Troponin was elevated at 1.300 with proBNP of 9550. TSH 5.370 and free T4 of 0.6. Urinalysis positive for protein and blood but negative for infection. Drug screen positive for opiates and marijuana. Influenza A positive. Patient was admitted under our services with consultation to cardiology. Troponins trended resulting at 1.300, 0.827, 0.880, and 0.638. Physical exam: Patient was seen and fully evaluated at bedside this morning. She is alert to person, place, and situation but confused to time. Patient is a poor historian but does report to drinking a half 1/5 of liquor daily. When asked what she drinks she stated anything she can get her hands on but usually always liquor. Patient is aware and verbalizes that today's [place] but unable to state the year or the actual date. Vital signs reviewed and stable. General: Nontoxic, no distress and appears stated age. Thin and frail. Derm: Skin warm and dry, normal coloration for ethnicity. Head: Atraumatic, normocephalic and symmetric. Eyes: EOM's intact, no lid lag, and anicteric sclera Mouth: no lip lesions, mucus membranes moist Cardiovascular: regular rate and rhythm with normal S1S2, systolic murmur, positive posterior tibial pulses bilaterally, and cap refill < 2 seconds. Lungs: Respirations even, regular, and unlabored on room air. Lungs CTA bilaterally, no rhonchi, no rales, no wheezing, and no accessory muscle usage. Abdominal: soft, nontender to palpation, no guarding, no appreciable organomegaly Ext: ROM intact. No gross muscle atrophy, no edema, no contractures Neuro: Speech clear, face symmetrical and CN II-XII grossly intact with no noted focal neuro deficits Psych: Alert and oriented to person, place, and situation. Confused to time and is a poor historian. Appropriate and pleasant affect. Assessment and Plan of Care: NSTEMI, likely type II VT secondary to RVR and hypotension Atrial Fibrillation with RVR Hypotension, likely multifactorial secondary to severe dehydration and rapid ventricular rate Acute kidney injury, likely secondary to severe dehydration and hypotension -Continue low intensity heparin infusion with close monitoring of PTT every 6 hours for goal therapeutic range of 45 to 79 seconds. -Cardiology consulted, appreciate recommendations. -Troponins trended resulting at 1.300, 0.827, 0.880, and 0.638. -Patient to remain on continuous telemetry monitoring. -Continue cardiac medication regimen with aspirin 81 mg daily, atorvastatin 20 mg daily, diltiazem 120 mg daily and Plavix 75 mg daily. -Losartan held secondary to JOYCELYN and hypotension. -Echocardiogram to be completed. -Renal function improving with BUN of 47, creatinine 1.25, and GFR increasing to 43. -Gentle IV fluid hydration with 0.9% normal saline at 75 cc/h for an additional 24 hours and repeat BMP with morning labs. -Blood pressures remain soft but hypotension improved after IV fluid hydration. [facility]67 and heart rate 67. Influenza A. -Symptoms reportedly began 6 days ago, no need to start Tamiflu at this time. Continue symptomatic and supportive treatment. -Droplet precautions. Alcohol abuse possibly pending withdraw Hypokalemia Elevated liver enzymes, possibly secondary to reports of previous diagnosis of hepatitis C but also likely secondary to daily alcohol use/abuse -Patient reports drinking a half of a fifth of liquor daily for as long as she c an remember. Pt was unclear of when last drink was. -Order placed for monitoring of CIWA scores and patient to be medicated with Ativan 0.5 mg every 4 hours as needed for CIWA score of 4-5, Ativan 1 mg every 4 hours for CIWA score of 6-7, Ativan 2 mg every 3 hours CIWA score of 8-9, and Ativan 2 mg every 2 hours forr CIWA score of 10 or greater. -Continuous IV hydration with 0.9% normal saline at 75 cc/h. -Thiamine 100 mg daily, and Multivitamin daily, and Folate 1 mg daily -Continued close monitoring of electrolytes and replace as needed. -Telemetry monitoring. Generalized weakness. Likely multifactorial secondary to influenza A, dehydration, hypotension, A-fib RVR, and physical deconditioning secondary to multiple comorbidities and reported daily alcohol abuse. Continue to provide supportive and symptomatic care. PT/OT to evaluate for possible rehab placement. Lactic acidosis. Resolved with IV fluid hydration History of CVA no reported residual deficits, . Continue aspirin 81 mg daily, atorvastatin 20 mg daily, and Plavix 75 mg daily. COPD, not in acute exacerbation. Maintaining SpO2 on room air. Patient to continue Symbicort 160-4.5 mcg inhaler 2 puffs twice daily and DuoNebs 4 times daily as needed for wheezing/shortness of breath. Memory impairment, unclear if history of dementia was secondary to daily alcohol abuse. Patient to be provided with safe and supportive care and redirection/assistance as needed. Data and imaging reviewed: -Labs completed and reviewed. CBC showing no significant abnormalities. Co agulation profile showing a supratherapeutic INR with PTT of 162.1. Heparin to be held per policy and restarted at lower rate per protocol With continued close monitoring of PTT for goal therapeutic range of 45 to 79 seconds. BMP showing hyponatremia with sodium of 134 and hypokalemia with potassium of 3.2 slight improvement of renal function with BUN of 47, creatinine of 1.25, GFR 43. Magnesium 1.8. Liver profile showing elevated AST of 59 and low albumin of 3.3. Troponins trended resulting at 1.300, 0.827, 0.880, and 0.638. -Vital signs reviewed. Blood pressure 106/67, heart rate 67, respiratory rate 14, temp 98.0 F, and SpO2 of 97% on room air. CODE STATUS: Full code DVT prophylaxis: Heparin infusion, transition back to Xarelto once cleared by cardiology Anticipated discharge date: Pending clinical course Anticipated discharge place: Home with home care versus rehab Patient was seen independently by Nurse Pracitioner. This document was prepared using there[employer] dictation software. Please allow for errors in construction crew member, while rare they do occur. Theodore Jovel NP rendered care for this patient independently, reviewed the findings and plan as documented in the note above and agree with plan. I did not physically speak with or examine the patient on this date. Objective - Vital Signs Vital signs: Vital Signs Temp 98.0 F 04/16/24 07:27 Pulse 72 04/16/24 08:16 Resp 16 04/16/24 08:16 BP 106/67 04/16/24 07:27 Pulse Ox 97 04/16/24 07:27 FiO2 Intake & Output 04/15/24 04/16/24 04/16/24 18:59 06:59 18:59 Intake Total 46.228 0 Balance 46.228 0 Weight 50.802 kg Intake: Intake, IV Titration 46.228 0 Amount Heparin Sod,Pork in 0.45% 46.228 0 NaCl 25,000 unit In 0.45 % NaCl 1 250ml.bag @ 12 UNITS/KG/HR 6.096 mls/hr IV .Q24H [facility] Rx#: [id number] - Labs CBC & Chem 7: 04/16/24 05:37 04/16/24 05:37 Labs: Abnormal Lab Results - Last 24 Hours (Table) 04/15/24 04/15/24 04/15/24 Range/Units 18:40 18:40 18:40 RBC (3.80-5.40) m/uL Hct 46.3 H (34.0-46.0) % Neutrophils # 8.0 H (1.3-7.7) k/uL PT 18.6 H (10.0-12.5) sec INR 1.8 H (<1.2) APTT 41.3 H (22.0-30.0) sec Sodium (137-145) mmol/L Potassium (3.5-5.1) mmol/L Carbon Dioxide (22-30) mmol/L BUN (7-17) mg/dL Creatinine (0.52-1.04) mg/dL Glucose (74-99) mg/dL Plasma Lactic Acid Jerry (0.7-2.0) mmol/L Calcium (8.4-10.2) mg/dL AST (14-36) U/L Troponin I (0.000-0.034) ng/mL Total Protein (6.3-8.2) g/dL Albumin (3.5-5.0) g/dL TSH (0.465-4.680) mIU/L Urine Appearance Cloudy H (Clear) Urine Protein 2+ H (Negative) Urine Blood Small H (Negative) Ur Squamous Epith Cells 5 H (0-4) /hpf Amorphous Sediment Few H (None) /hpf Hyaline Casts 24 H (0-2) /lpf Urine Mucus Rare H (None) /hpf Urine Opiates Screen (NotDetected) U Marijuana (THC) Screen (NotDetected) Influenza Type A (PCR) (Not Detectd) 04/15/24 04/15/24 04/15/24 Range/Units 18:40 18:40 18:40 RBC (3.80-5.40) m/uL Hct (34.0-46.0) % Neutrophils # (1.3-7.7) k/uL PT (10.0-12.5) sec INR (<1.2) APTT (22.0-30.0) sec Sodium 135 L (137-145) mmol/L Potassium (3.5-5.1) mmol/L Carbon Dioxide 17 L (22-30) mmol/L BUN 38 H (7-17) mg/dL Creatinine 1.54 H (0.52-1.04) mg/dL Glucose 154 H (74-99) mg/dL Plasma Lactic Acid Jerry 6.1 H* (0.7-2.0) mmol/L Calcium (8.4-10.2) mg/dL AST 68 H (14-36) U/L Troponin I 1.300 H* (0.000-0.034) ng/mL Total Protein (6.3-8.2) g/dL Albumin (3.5-5.0) g/dL TSH 5.370 H (0.465-4.680) mIU/L Urine Appearance (Clear) Urine Protein (Negative) Urine Blood (Negative) Ur Squamous Epith Cells (0-4) /hpf Amorphous Sediment (None) /hpf Hyaline Casts (0-2) /lpf Urine Mucus (None) /hpf Urine Opiates Screen (NotDetected) U Marijuana (THC) Screen (NotDetected) Influenza Type A (PCR) (Not Detectd) 04/15/24 04/15/24 04/15/24 Range/Units 18:40 19:43 21:41 RBC (3.80-5.40) m/uL Hct (34.0-46.0) % Neutrophils # (1.3-7.7) k/uL PT (10.0-12.5) sec INR (<1.2) APTT (22.0-30.0) sec Sodium (137-145) mmol/L Potassium (3.5-5.1) mmol/L Carbon Dioxide (22-30) mmol/L BUN (7-17) mg/dL Creatinine (0.52-1.04) mg/dL Glucose (74-99) mg/dL Plasma Lactic Acid Jerry (0.7-2.0) mmol/L Calcium (8.4-10.2) mg/dL AST (14-36) U/L Troponin I 0.827 H* (0.000-0.034) ng/mL Total Protein (6.3-8.2) g/dL Albumin (3.5-5.0) g/dL TSH (0.465-4.680) mIU/L Urine Appearance (Clear) Urine Protein (Negative) Urine Blood (Negative) Ur Squamous Epith Cells (0-4) /hpf Amorphous Sediment (None) /hpf Hyaline Casts (0-2) /lpf Urine Mucus (None) /hpf Urine Opiates Screen Detected H (NotDetected) U Marijuana (THC) Screen Detected H (NotDetected) Influenza Type A (PCR) Detected A (Not Detectd) 04/16/24 04/16/24 04/16/24 Range/Units 00:48 05:37 05:37 RBC 3.69 L (3.80-5.40) m/uL Hct (34.0-46.0) % Neutrophils # (1.3-7.7) k/uL PT 12.8 H (10.0-12.5) sec INR 1.2 H (<1.2) APTT 162.1 H* (22.0-30.0) sec Sodium (137-145) mmol/L Potassium (3.5-5.1) mmol/L Carbon Dioxide (22-30) mmol/L BUN (7-17) mg/dL Creatinine (0.52-1.04) mg/dL Glucose (74-99) mg/dL Plasma Lactic Acid Jerry (0.7-2.0) mmol/L Calcium (8.4-10.2) mg/dL AST (14-36) U/L Troponin I 0.880 H* (0.000-0.034) ng/mL Total Protein (6.3-8.2) g/dL Albumin (3.5-5.0) g/dL TSH (0.465-4.680) mIU/L Urine Appearance (Clear) Urine Protein (Negative) Urine Blood (Negative) Ur Squamous Epith Cells (0-4) /hpf Amorphous Sediment (None) /hpf Hyaline Casts (0-2) /lpf Urine Mucus (None) /hpf Urine Opiates Screen (NotDetected) U Marijuana (THC) Screen (NotDetected) Influenza Type A (PCR) (Not Detectd) 04/16/24 04/16/24 Range/Units 05:37 05:37 RBC (3.80-5.40) m/uL Hct (34.0-46.0) % Neutrophils # (1.3-7.7) k/uL PT (10.0-12.5) sec INR (<1.2) APTT (22.0-30.0) sec Sodium 134 L (137-145) mmol/L Potassium 3.2 L (3.5-5.1) mmol/L Carbon Dioxide (22-30) mmol/L BUN 47 H (7-17) mg/dL Creatinine 1.25 H (0.52-1.04) mg/dL Glucose (74-99) mg/dL Plasma Lactic Acid Jerry (0.7-2.0) mmol/L Calcium 8.2 L (8.4-10.2) mg/dL AST 59 H (14-36) U/L Troponin I 0.638 H* (0.000-0.034) ng/mL Total Protein 5.8 L (6.3-8.2) g/dL Albumin 3.3 L (3.5-5.0) g/dL TSH (0.465-4.680) mIU/L Urine Appearance (Clear) Urine Protein (Negative) Urine Blood (Negative) Ur Squamous Epith Cells (0-4) /hpf Amorphous Sediment (None) /hpf Hyaline Casts (0-2) /lpf Urine Mucus (None) /hpf Urine Opiates Screen (NotDetected) U Marijuana (THC) Screen (NotDetected) Influenza Type A (PCR) (Not Detectd)
[2024-04-16 11:59] LABS: Glucose,Whole Blood 125 mg/dL (70-110)
[2024-04-16] MEDS: ASPIRIN 81 MG PO SCH (12:08)
[2024-04-16] MEDS: POTASSIUM CHLORIDE ER 20 MEQ TAB.ER PO STA (12:09)
[2024-04-17] MEDS: ACETAMINOPHEN TAB 325 MG TAB PO PRN (06:54)
[2024-04-17 07:11] LABS: Glucose,Whole Blood 101 mg/dL (70-110)
[2024-04-17 07:11] LABS: Glucose,Whole Blood 84 mg/dL (70-110)
[2024-04-17 07:56] LABS: Glucose,Whole Blood 94 mg/dL (70-110)
[2024-04-17] MEDS: MULTIVITAMINS, THERA 1 EACH TAB PO SCH (08:02)
[2024-04-17] MEDS: THIAMINE 100 MG TAB PO SCH (08:02)
[2024-04-17] MEDS: FOLIC ACID 1 MG TAB PO SCH (08:02)
[2024-04-17 08:59] LABS: HCT 34.7 % (34.0-46.0); HGB 12.1 gm/dL (11.4-16.0); MCH 34.3 pg (25.0-35.0); Macrocytosis Slight; Mean Platelet Volume 9.8; Platelet Count 112 k/uL (150-450); RBC 3.54 m/uL (3.80-5.40); RDW 15.3 % (11.5-15.5); WBC 3.3 k/uL (3.8-10.6)
[2024-04-17 11:27] LABS: ALT 45 U/L (4-34); AST 92 U/L (14-36); African American GFR (CKD) >90 (>60 ml/min/1.73 sqM); Albumin 3.2 g/dL (3.5-5.0); Alkaline Phosphatase 64 U/L (38-126); Anion Gap 8 mmol/L; Blood Urea Nitrogen 24 mg/dL (7-17); Calcium 8.4 mg/dL (8.4-10.2); Carbon Dioxide 22 mmol/L (22-30); Chloride 105 mmol/L (98-107); Glucose 94 mg/dL (74-99); Magnesium 1.7 mg/dL (1.6-2.3); Non-African American GFR(CKD) 85 (>60 ml/min/1.73 sqM); Potassium 3.2 mmol/L (3.5-5.1); Sodium 135 mmol/L (137-145); Total Bilirubin 0.4 mg/dL (0.2-1.3); Total Protein 5.7 g/dL (6.3-8.2)
--- NOTE | 2024-04-17 11:36 | P.CRDCN ---
History of Present Illness Consult date: 04/17/24 History of present illness: SUBJECTIVE: HPI: Patient is a 73-year-old past medical history of hypertension dyslipidemia CVA, paroxysmal atrial fibrillation on Xarelto, COPD, hepatitis C, alcoholic memory impairment. Presented to the hospital because of concerns of generalized weakness severe dehydration. Cardiology was consulted for elevated troponins. On admission had evidence of JOYCELYN creatinine 1.54, improved to 0.7, troponin elevated 1.2, repeat 0.8,'s repeat 0.6. 04/17/2024 on today's visit patient is still lethargic, sleeping, appears weak however denies any chest pain chest pressure. PHYSICAL EXAMINATION Vital signs reviewed. Head: Normocephalic. Eyes: Sclerae nonicteric. Neck: Brisk carotid upstroke, no jugular venous distention. Lungs: Clear to auscultation. Heart: Regular rate and rhythm, S1-S2, no S3, no murmur or rub. Abdomen: Soft nontender, bowel sounds present, Extremities: No edema, Neuro: Sleepy and drowsy but arousable. Detailed neuro exam was not performed. ASSESSMENT NSTEMI type II, likely exacerbated by severe dehydration Abnormal EKG showing T wave inversions inferolateral leads A-fib RVR on admission, currently sinus rhythm Paroxysmal atrial fibrillation Alcoholism h/o of CVA JOYCELYN on admission, improved Frailty and debility Protein calorie energy malnutrition PLAN Continue aspirin, Lipitor, Plavix. Cardizem 120 mg daily Continue IV heparin drip. Hold Xarelto. Await echocardiogram. If echocardiogram is within normal limits with no wall motion abnormality or decline in LVEF, consider switching back to Xarelto and discontinuing IV heparin drip. And follow-up outpatient with outpatient ischemic evaluation with a stress test. If echocardiogram shows significant wall motion abnormality will consider heart catheterization. On discharge, discharged on Plavix and Xarelto. Do not resume aspirin. She is on Plavix for history of CVA Refrain from alcohol or any other substance use. Alejandro Arthur MD, FACC, RPVI Thank you for allowing [facility] to participate in this patient's care. Please contact us in case of any followup questions. Past Medical History Past Medical History: Asthma, COPD, CVA/TIA, GERD/Reflux, Hypertension, Liver Disease, Pneumonia Additional Past Medical History / Comment(s): vertigo, HEP -C THINKS SHE MAY HAVE GOTTEN IT IN 1974 HAD RUPTURED TUBAL AND RECIEVED BLOOD TRANSFUSION, STROKE 2001 NO RESIDUAL PROBLEMS, PALPITATION,INCONT OF URINE, VERTIGO. History of Any Multi-Drug Resistant Organisms: C-DIFF Date of last positivie culture/infection: 12/07/14 MDRO Source:: Stool Past Surgical History: Adenoidectomy, Appendectomy, Back Surgery, Hysterectomy, Tonsillectomy Additional Past Surgical History / Comment(s): IST SX LAMENECTOMY, 2ND FUSION THINSK SHE HAS A DEBORAH INPLACE, CATARACTS [employer]ETTE LENS IMPLANTS, TUBAL IN 1974, LIVER BIOPSY NEG CANCER BUT POSITIVE FOR HEP C. Past Anesthesia/Blood Transfusion Reactions: No Reported Reaction Past Psychological History: Depression Smoking Status: Never smoker Past Alcohol Use History: Daily, Heavy Past Drug Use History: None Reported - Past Family History Father Family Medical History: Cancer Additional Family Medical History / Comment(s): BLADDER CANCER BUT FROM A STROKE Mother Family Medical History: Diabetes Mellitus, Myocardial Infarction ([place]) Additional Family Medical History / Comment(s): HEART PROBLEMS Medications and Allergies Home Medications Medication Instructions Recorded Confirmed Type Budesonide/Formoterol Fumarate 2 puff INHALATION RT-BID 10/29/14 04/15/24 H istory [Symbicort 160-4.5 Mcg Inhaler] Clopidogrel [Plavix] 75 mg PO DAILY 10/29/14 04/15/24 History Atorvastatin [Lipitor] 20 mg PO DAILY 04/15/24 04/15/24 History DULoxetine HCL [Cymbalta] 30 mg PO DAILY 04/15/24 04/15/24 History Losartan [Cozaar] 25 mg PO DAILY 04/15/24 04/15/24 History Mirabegron [Myrbetriq] 50 mg PO DAILY 04/15/24 04/15/24 History Morphine Sulfate 15 mg PO TID 04/15/24 04/15/24 History Pantoprazole [Protonix] 40 mg PO DAILY 04/15/24 04/15/24 History Rivaroxaban [Xarelto] 20 mg PO DAILY 04/15/24 04/15/24 History dilTIAZem HCL [Cardizem CD] 120 mg PO DAILY 04/15/24 04/15/24 History Allergies Allergy/AdvReac Type Severity Reaction Status Date / Time cefuroxime axetil Allergy Unknown Verified 04/15/24 19:42 [From Ceftin] diphenhydramine HCl Allergy Rash/Hives Verified 04/15/24 19:42 [From Benadryl] Sulfa (Sulfonamide Allergy Rash/Hives Verified 04/15/24 19:42 Antibiotics) NSAIDS (Non-Steroidal AdvReac Nausea Verified 04/15/24 19:42 Anti-Inflamma Physical Exam Vitals: Vital Signs Temp Pulse Resp BP Pulse Ox 04/17/24 10:23 98.3 F 67 18 110/72 96 04/17/24 07:52 99.1 F 75 19 127/63 100 04/17/24 06:41 100.3 F H 76 20 117/63 98 04/17/24 03:20 80 18 132/95 99 04/17/24 01:00 77 16 126/69 100 04/16/24 22:00 72 23 110/85 98 Intake and Output 04/16/24 04/17/24 04/17/24 22:59 06:59 14:59 Intake Total 31.547 45.034 33.223 Output Total 850 Balance 31.547 45.034 -816.777 Intake: Intake, IV Titration 31.547 45.034 33.223 Amount Heparin Sod,Pork in 0.45% 31.547 45.034 33.223 NaCl 25,000 unit In 0.45 % NaCl 1 250ml.bag @ 12 UNITS/KG/HR 6.096 mls/hr IV .Q24H [facility] Rx#: [id number] Output: Urine 850 Results 04/17/24 07:45 04/17/24 10:28 Cardiac Enzymes 04/17/24 Range/Units 10:28 AST 92 H (14-36) U/L Coagulation 04/16/24 Range/Units 13:12 APTT 60.9 H (22.0-30.0) sec CBC 04/17/24 Range/Units 07:45 WBC 3.3 L (3.8-10.6) k/uL RBC 3.54 L (3.80-5.40) m/uL Hgb 12.1 (11.4-16.0) gm/dL Hct 34.7 (34.0-46.0) % Plt Count 112 L (150-450) k/uL Comprehensive Metabolic Panel 04/17/24 Range/Units 10:28 Sodium 135 L (137-145) mmol/L Potassium 3.2 L (3.5-5.1) mmol/L Chloride 105 (98-107) mmol/L Carbon Dioxide 22 (22-30) mmol/L BUN 24 H (7-17) mg/dL Creatinine 0.71 (0.52-1.04) mg/dL Glucose 94 (74-99) mg/dL Calcium 8.4 (8.4-10.2) mg/dL AST 92 H (14-36) U/L ALT 45 H (4-34) U/L Alkaline Phosphatase 64 (38-126) U/L Total Protein 5.7 L (6.3-8.2) g/dL Albumin 3.2 L (3.5-5.0) g/dL Current Medications Generic Name Dose Route Start Last Admin Trade Name Freq PRN Reason Stop Dose Admin Acetaminophen 650 mg 04/17/24 06:45 04/17/24 06:54 Acetaminophen Tab 325 Mg Tab PO 650 mg Q6HR PRN Administration Fever Albuterol/Ipratropium 3 ml 04/16/24 02:37 Ipratropium-Albuterol 3 Ml Neb INHALATION RT-QID PRN Shortness Of Breath Or Wheezing Aspirin 81 mg 04/16/24 11:30 04/17/24 08:02 Aspirin 81 Mg PO 81 mg DAILY [facility] Administration Atorvastatin Calcium 20 mg 04/16/24 09:00 04/17/24 08:02 Atorvastatin 20 Mg Tab PO 20 mg DAILY [facility] Administration Budesonide/Formoterol Fumarate 2 puff 04/16/24 08:00 04/17/24 07:50 Symbicort 160-4.5 Mcg Inhaler INHALATION Not Given RT-BID [facility] Clopidogrel Bisulfate 75 mg 04/16/24 09:00 04/17/24 08:02 Clopidogrel 75 Mg Tab PO 75 mg DAILY [facility] Administration Dextrose/Water 25 ml 04/16/24 02:35 Dextrose 50% Syringe 50 Ml IVP PER PROTOCOL PRN Hypoglycemia Protocol Dextrose/Water 50 ml 04/16/24 02:35 Dextrose 50% Syringe 50 Ml IVP PER PROTOCOL PRN Hypoglycemia Protocol Diltiazem HCl 120 mg 04/16/24 09:00 04/17/24 08:02 Diltiazem Cd 120 Mg Cap.Er.24h PO 120 mg DAILY [facility] Administration Duloxetine HCl 30 mg 04/16/24 09:00 04/17/24 08:02 Duloxetine Hcl 30 Mg Capsule.Dr PO 30 mg DAILY [facility] Administration Folic Acid 1 mg 04/17/24 09:00 04/17/24 08:02 Folic Acid 1 Mg Tab PO 1 mg DAILY [facility] Administration Heparin Sodium (Porcine) 0 unit 04/15/24 22:22 Heparin Sodium 1,000 Un/Ml (10ml Vl) IV PER PROTOCOL PRN Low PTT Protocol Heparin Sodium/Sodium Chloride 250 mls @ 6.096 mls/hr 04/15/24 22:30 04/17/24 08:14 25,000 unit/ Sodium Chloride IV 9 units/kg/hr .Q24H [facility] 4.57 mls/hr Titration Protocol 12 UNITS/KG/HR Sodium Chloride 1,000 mls @ 75 mls/hr 04/16/24 02:45 04/17/24 00:49 Saline 0.9% IV 75 mls/hr .[id number] [facility] Administration Insulin Aspart 0 unit 04/16/24 07:30 04/17/24 07:45 Insulin Aspart (Novolog) 100 Unit/Ml Vial SQ Not Given ACHS [facility] Protocol Lorazepam 0.5 mg 04/16/24 11:22 Lorazepam 0.5 Mg Tab PO Q4HR PRN Ciwa 4 To 5 Lorazepam 1 mg 04/16/24 11:22 Lorazepam 1 Mg Tab PO Q4HR PRN Ciwa 6 To 7 Lorazepam 2 mg 04/16/24 11:22 Lorazepam 1 Mg Tab PO Q2HR PRN Ciwa 10 or greater Lorazepam 2 mg 04/16/24 11:22 Lorazepam 1 Mg Tab PO Q3HR PRN Ciwa 8 To 9 Multivitamins 1 each 04/17/24 09:00 04/17/24 08:02 Multivitamins, Thera 1 Each Tab PO 1 each DAILY [facility] Administration Naloxone HCl 0.2 mg 04/15/24 23:04 Naloxone 0.4 Mg/Ml 1 Ml Vial IV Q2M PRN Opioid Reversal Pantoprazole Sodium 40 mg 04/16/24 07:30 04/17/24 08:02 Pantoprazole 40 Mg Tablet PO 40 mg DAILY@0730 FATU[facility] Administration Thiamine HCl 100 mg 04/17/24 09:00 04/17/24 08:02 Thiamine 100 Mg Tab PO 100 mg DAILY [facility] Administration Intake and Output 04/16/24 04/17/24 04/17/24 22:59 06:59 14:59 Intake Total 31.547 45.034 33.223 Output Total 850 Balance 31.547 45.034 -816.777 Intake: Intake, IV Titration 31.547 45.034 33.223 Amount Heparin Sod,Pork in 0.45% 31.547 45.034 33.223 NaCl 25,000 unit In 0.45 % NaCl 1 250ml.bag @ 12 UNITS/KG/HR 6.096 mls/hr IV .Q24H [facility] Rx#: [id number] Output: Urine 850 04/17/24 07:45 04/17/24 10:28
[2024-04-17 12:09] LABS: Glucose,Whole Blood 104 mg/dL (70-110)
[2024-04-17] MEDS ORDERED: Potassium Replacement Protocol 1 EACH MISC MISCELLANE PRN (12:48)
--- NOTE | 2024-04-17 12:51 | P.PN ---
Subjective Progress Note Date: 04/17/24 Hospital Course: A 73-year-old female with PMH of HTN, HLD, CVA, paroxysmal A-fib on Xarelto, C OPD, history of alcohol use disorder, hepatitis C, who presented to the hospital with generalized weakness, severe dehydration.Vital signs upon arrival show patient to be hypotensive with blood pressure of 62/49, heart rate 130, respiratory rate 18, temp 97.2 F, and SpO2 of 97% on room air. EKG was completed showing atrial fibrillation with RVR at 122 bpm with T wave inversion in inferior lateral leads and moderate ST depression in inferior lateral leads.. Chest x-ray completed negative for acute cardiopulmonary process. CT head and cervical spine negative for acute process. Lab work significant for elevated troponin, JOYCELYN. Patient was started on IV heparin, IV fluids, her losartan was held due to JOYCELYN and hypotension. Patient also dosed with history for influenza, no Tamiflu was ordered due to symptoms onset more than 6 days ago.cardiology and nephrology consulted. Patient was started on CIWA, multivitamins. At discharge patient will be taking Plavix and Xarelto, no aspirin Pertinent Imaging: Subjective: [] Pertinent positives and negatives as discussed above, a complete review of systems was performed and all other systems are negative. Vitals Signs Reviewed. General: [nontoxic], [no distress], [appears at stated age], frail Derm: [warm], [dry], toes onychomycosis Head: [atraumatic], [normocephalic], [symmetric] Eyes: [EOMI], [no lid lag], [anicteric sclera] Mouth: [no lip lesion], [mucus membranes moist] Cardiovascular: [S1S2 reg], [no murmur] Lungs: [CTA bilateral], [no rhonchi, no rales] , [no accessory muscle use] Abdominal: [soft], [ nontender to palpation], [no guarding], [no appreciable organomegaly] Ext: [no gross muscle atrophy], [no edema], [no contractures] Neuro: [ CN II-XI grossly intact], [no focal neuro deficits] Psych: [Alert], [oriented], [appropriate affect], confused Data Reviewed Today: Pertinent Labs: CBC with leukopenia 3.3, normal and stable hemoglobin, platelets 112, sodium 135, potassium low 3.2, creatinine normal 0.71 AST and ALT elevated 92 and 45 accordingly Assessment and Plan: NSTEMI type II likely in the settings of severe dehydration T wave inversions in the inferior lateral leads Paroxysmal A-fib with RVR, currently in sinus -Cardiology consulted, appreciate recommendations -Continue IV heparin drip, hold Xarelto -Continue continue dual antiplatelet, Lipitor -Continue Cardizem 120 daily -TTE ordered, pending; if no significant changes, switch back to Xarelto per cardiology and follow-up as outpatient with outpatient ischemic evaluation -At discharge patient will be taking Plavix and Xarelto, no aspirin JOYCELYN, prerenal -cr normal, stop IVF -Continue to hold losartan -Nephrology following, appreciate recommendations Leukopenia Thrombocytopenia -Likely due to alcohol use disorder, continue to monitor CBC Hypokalemia -Potassium 3.2, replaced [Chronic:] Alcohol abuse possibly pending withdrawal Elevated liver enzymes, possibly secondary to reports of previous diagnosis of hepatitis C but also likely secondary to daily alcohol use/abuse -Patient reports drinking a half of a fifth of liquor daily for as long as she can remember. Pt was unclear of when last drink was. -Order placed for monitoring of CIWA scores and patient to be medicated with Ativan 0.5 mg every 4 hours as needed for CIWA score of 4-5, Ativan 1 mg every 4 hours for CIWA score of 6-7, Ativan 2 mg every 3 hours CIWA score of 8-9, and Ativan 2 mg every 2 hours forr CIWA score of 10 or greater. -Thiamine 100 mg daily, and Multivitamin daily, and Folate 1 mg daily -Continued close monitoring of electrolytes and replace as needed. -Telemetry monitoring. Generalized weakness. -ikely multifactorial secondary to influenza A, dehydration, hypotension, A-fib RVR, and physical deconditioning secondary to multiple comorbidities and reported daily alcohol abuse -Continue to provide supportive and symptomatic care -PTOT Lactic acidosis. Resolved with IV fluid hydration History of CVA no reported residual deficits, . Continue aspirin 81 mg daily, atorvastatin 20 mg daily, and Plavix 75 mg daily. at discharge will d/c aspiring COPD, not in acute exacerbation. Maintaining SpO2 on room air. Patient to continue Symbicort 160-4.5 mcg inhaler 2 puffs twice daily and DuoNebs 4 times daily as needed for wheezing/shortness of breath. Memory impairment, unclear if history of dementia was secondary to daily alcohol abuse. Patient to be provided with safe and supportive care and redirection/assistance as needed. DVT ppx: heparin Anticipated discharge place: [tbd Anticipated discharge time: [24-48 hours Objective - Vital Signs Vital signs: Vital Signs Temp 98.3 F 04/17/24 10:23 Pulse 67 04/17/24 10:23 Resp 18 04/17/24 10:23 BP 110/72 04/17/24 10:23 Pulse Ox 96 04/17/24 10:23 FiO2 Intake & Output 04/16/24 04/17/24 04/17/24 18:59 06:59 18:59 Intake Total 31.547 45.034 33.223 Output Total 850 Balance 31.547 45.034 -816.777 Intake: Intake, IV Titration 31.547 45.034 33.223 Amount Heparin Sod,Pork in 0.45% 31.547 45.034 33.223 NaCl 25,000 unit In 0.45 % NaCl 1 250ml.bag @ 12 UNITS/KG/HR 6.096 mls/hr IV .Q24H [facility] Rx#: [id number] Output: Urine 850 - Labs CBC & Chem 7: 04/17/24 07:45 04/17/24 10:28 Labs: Abnormal Lab Results - Last 24 Hours (Table) 04/16/24 04/17/24 04/17/24 Range/Units 13:12 07:45 10:28 WBC 3.3 L (3.8-10.6) k/uL RBC 3.54 L (3.80-5.40) m/uL Plt Count 112 L (150-450) k/uL APTT 60.9 H (22.0-30.0) sec Sodium 135 L (137-145) mmol/L Potassium 3.2 L (3.5-5.1) mmol/L BUN 24 H (7-17) mg/dL AST 92 H (14-36) U/L ALT 45 H (4-34) U/L Total Protein 5.7 L (6.3-8.2) g/dL Albumin 3.2 L (3.5-5.0) g/dL
[2024-04-17] MEDS: POTASSIUM CHLORIDE ER 20 MEQ TAB.ER PO SCH (14:18)
[2024-04-17 16:47] LABS: Glucose,Whole Blood 97 mg/dL (70-110)
--- NOTE | 2024-04-17 16:52 | CA ---
Transthoracic Echo Report Name: Ghislaine Mills Age: 73 Gender: F : 1950 Exam Date: 04/17/2024 14:50 Exam Location: [facility] Ht (in): 65 Wt (lb): 110 Ordering Physician: Gene Love DO Attending/Referring Phys: Cadmium Plater Yadi Sevilla RDCS Procedure CPT: Indications: elevated troponins Cardiac Hx: Technical Quality: Fair Contrast 1: Total Dose (mL): Contrast 2: Total Dose (mL): MEASUREMENTS (Male / Female) Normal Values 2D ECHO LV Diastolic Diameter PLAX 3.3 cm 4.2 - 5.9 / 3.9 - 5.3 cm LV Systolic Diameter PLAX 2.5 cm IVS Diastolic Thickness 0.9 cm 0.6 - 1.0 / 0.6 - 0.9 cm LVPW Diastolic Thickness 1.0 cm 0.6 - 1.0 / 0.6 - 0.9 cm LV Relative Wall Thickness 0.6 RV Internal Dim ED PLAX 2.9 cm LA Systolic Diameter LX 3.4 cm 3.0 - 4.0 / 2.7 - 3.8 cm LA Volume 41.8 cm??? 18 - 58 / 22 - 52 cm??? LA Volume Index 27.8 cm???/m??? 16 - 28 cm???/m??? M-MODE Aortic Root Diameter MM 2.7 cm AV Cusp Separation MM 2.2 cm DOPPLER AV Peak Velocity 144.9 cm/s AV Peak Gradient 8.4 mmHg MV Area PHT 3.1 cm??? Mitral E Point Velocity 139.2 cm/s Mitral A Point Velocity 89.0 cm/s Mitral E to A Ratio 1.6 MV Deceleration Time 242.9 ms TR Peak Velocity 249.8 cm/s TR Peak Gradient 25.0 mmHg Right Ventricular Systolic Press 29.3 mmHg FINDINGS Left Ventricle Left ventricular ejection fraction is estimated at 55-60 %. Small left ventricular cavity. Left ventricular wall thickness normal. Right Ventricle Normal right ventricular size. Right ventricular systolic pressure within normal limits. Right Atrium Normal right atrial size. No right atrial thrombus or mass seen. Left Atrium Normal left atrial size. No left atrial thrombus or mass present. Mitral Valve Mitral valve thickened. Mitral annular calcification. Aortic Valve Trileaflet aortic valve. Thickened aortic valve without stenosis. Tricuspid Valve Structurally normal tricuspid valve. Mild tricuspid regurgitation. Pulmonic Valve Pulmonic valve not well visualized. No pulmonic regurgitation. Pericardium No pericardial effusion. Aorta Normal size aortic root and proximal ascending aorta. CONCLUSIONS Normal LV systolic function Previewed by: Dr. Thomas Norton MD (Electronically Signed) Final Date: 17 April 2024 16:51
[2024-04-17 20:11] LABS: Glucose,Whole Blood 100 mg/dL (70-110)
[2024-04-18 06:00] LABS: Glucose,Whole Blood 106 mg/dL (70-110)
[2024-04-18 08:25] LABS: African American GFR (CKD) >90 (>60 ml/min/1.73 sqM); Anion Gap 4 mmol/L; Blood Urea Nitrogen 15 mg/dL (7-17); Calcium 8.4 mg/dL (8.4-10.2); Carbon Dioxide 23 mmol/L (22-30); Chloride 108 mmol/L (98-107); Glucose 77 mg/dL (74-99); Non-African American GFR(CKD) 87 (>60 ml/min/1.73 sqM); Potassium 4.3 mmol/L (3.5-5.1); Sodium 135 mmol/L (137-145)
[2024-04-18] MEDS: RIVAROXABAN 20 MG TAB PO SCH (09:12)
[2024-04-18 10:45] VITALS: BMI 15.6
[2024-04-18 11:29] VITALS: BP 124/70; RESP 16; TEMP 98.4
[2024-04-18 11:40] LABS: Glucose,Whole Blood 116 mg/dL (70-110)
[2024-04-18 13:43] VITALS: PULSE 67
--- NOTE | 2024-04-18 14:55 | P.PN ---
Subjective HISTORY OF PRESENT ILLNESS: 04/17/2024-Per Dr. Arthur HPI: Patient is a 73-year-old past medical history of hypertension dyslipidemia CVA, paroxysmal atrial fibrillation on Xarelto, COPD, hepatitis C, alcoholic memory impairment. Presented to the hospital because of concerns of generalized weakness severe dehydration. Cardiology was consulted for elevated troponins. On admission had evidence of JOYCELYN creatinine 1.54, improved to 0.7, troponin elevated 1.2, repeat 0.8,'s repeat 0.6. 04/17/2024 on today's visit patient is still lethargic, sleeping, appears weak however denies any chest pain chest pressure. 04/18/2024 Patient examined this morning the bedside. Patient currently denies chest pain or pressure. She denies shortness of breath. Telemetry reveals sinus mechanism. She has been resumed on Xarelto per primary medicine. Echoc ardiogram reveals ejection fraction 55 to 60%, mild tricuspid regurgitation PHYSICAL EXAM: VITAL SIGNS: Reviewed. GENERAL: Well-developed in no acute distress. NECK: Supple. No JVD or thyromegaly LUNGS: Respirations even and unlabored. Lungs essentially clear to auscultation bilaterally. HEART: Regular rate and rhythm. S1 and S2 heard. EXTREMITIES: Normal range of motion. No clubbing or cyanosis. Peripheral pulses intact. No lower extremity edema ASSESSMENT: NSTEMI type II, likely exacerbated by severe dehydration Abnormal EKG showing T wave inversions inferolateral leads A-fib RVR on admission, currently sinus rhythm Paroxysmal atrial fibrillation Alcoholism h/o of CVA JOYCELYN on admission, improved Frailty and debility Protein calorie energy malnutrition PLAN: Patient has been resumed on Xarelto. Continue Plavix as well. Do not resume aspirin. Continue additional cardiac medications Recommend outpatient ischemic evaluation Patient is currently stable from a cardiac standpoint Discharge per medicine Nurse practitioner note has been reviewed by physician. Signing provider agrees with the documented findings, assessment, and plan of care documented by ADMEASURER as a scribe. Objective - Vital Signs Vital signs: Vital Signs Temp 98.4 F 04/18/24 11:25 Pulse 67 04/18/24 13:42 Resp 16 04/18/24 13:42 BP 124/70 04/18/24 11:25 Pulse Ox 93 L 04/18/24 11:25 FiO2 Intake & Output 04/17/24 04/18/24 04/18/24 18:59 06:59 18:59 Intake Total 58.206 1262 Output Total 850 Balance -536.198 6533 Weight 50.802 kg 44 kg 44 kg Intake: Intake, IV Titration 58.206 150 Amount Heparin Sod,Pork in 0.45% 58.206 NaCl 25,000 unit In 0.45 % NaCl 1 250ml.bag @ 12 UNITS/KG/HR 6.096 mls/hr IV .Q24H [facility] Rx#: [id number] Sodium Chloride 0.9% 1, 150 000 ml @ 75 mls/hr IV . [id number] [facility] Rx#:[id number] Oral 1112 Output: Urine 850 Other: Voiding Method Toilet External Catheter External Catheter Diaper # Voids 1 1 # Bowel Movements 1 - Labs CBC & Chem 7: 04/17/24 07:45 04/18/24 07:03 Labs: Abnormal Lab Results - Last 24 Hours (Table) 04/18/24 04/18/24 04/18/24 Range/Units 07:03 07:03 11:39 APTT 52.9 H (22.0-30.0) sec Sodium 135 L (137-145) mmol/L Chloride 108 H (98-107) mmol/L POC Glucose (mg/dL) 116 H (70-110) mg/dL
--- NOTE | 2024-04-18 15:13 | P.DS ---
Providers Date of admission: 04/15/24 23:04 Attending physician: Edgar Skinner MD Consults: 04/15/24 22:36 Consult Physician Urgent Consulting Provider: Scott Muniz Consult Reason/Comments: New onset atrial fibrillation, elevated troponin Do you want consulting provider notified?: Yes Primary care physician: [facility] Course: Discharge Diagnosis: NSTEMI type II likely in the settings of severe dehydration T wave inversions in the inferior lateral leads Paroxysmal A-fib with RVR, currently in sinus JOYCELYN, prerenal, resolved Hospital Course: A 73-year-old female with PMH of HTN, HLD, CVA, paroxysmal A-fib on Xarelto, COPD, history of alcohol use disorder, hepatitis C, who presented to the hospital with generalized weakness, severe dehydration.Vital signs upon arrival show patient to be hypotensive with blood pressure of 62/49, heart rate 130, respiratory rate 18, temp 97.2 F, and SpO2 of 97% on room air. EKG was completed showing atrial fibrillation with RVR at 122 bpm with T wave inversion in inferior lateral leads and moderate ST depression in inferior lateral leads.. Chest x-ray completed negative for acute cardiopulmonary process. CT head and cervical spine negative for acute process. Lab work significant for elevated troponin, JOYCELYN. Patient was started on IV heparin, IV fluids, her losartan was held due to JOYCELYN and hypotension. Patient also dosed with history for influenza, no Tamiflu was ordered due to symptoms onset more than 6 days ago.cardiology and nephrology consulted. Patient was started on CIWA, multivitamins. Her JOYCELYN resolved on IV fluids. TTE showed normal LV systolic function. At discharge patient will be taking Plavix and Xarelto, no aspirin. Patient to follow-up with cardiology for outpatient ischemic workup. Patient was seen and evaluated by PT OT, recommended home PTOT. Patient seen and examined at bedside.[] Vital signs reviewed and stable. General: [nontoxic], [no distress], [appears at stated age] Derm: [warm], [dry] Head: [atraumatic], [normocephalic], [symmetric] Eyes: [EOMI], [no lid lag], [anicteric sclera] Mouth: [no lip lesion], [mucus membranes moist] Cardiovascular: [S1S2 reg], [no murmur] Lungs: [CTA bilateral], [no rhonchi, no rales] , [no accessory muscle use] Abdominal: [soft], [ nontender to palpation], [no guarding], [no appreciable organomegaly] Ext: [no gross muscle atrophy], [no edema], [no contractures] Neuro: [ CN II-XI grossly intact], [no focal neuro deficits] Psych: [Alert], [oriented], [appropriate affect] A total of 40 minutes of time were spent preparing this complex discharge summary. Patient was discharged on 04/18/24 Plan - Discharge Summary Discharge Rx Participant: Yes New Discharge Prescriptions: New Acetaminophen Tab [Tylenol] 650 mg PO Q6HR PRN tab PRN Reason: Fever Folic Acid 1 mg PO DAILY #30 tab Multivitamins, Thera [Multivitamin (formulary)] 1 each PO DAILY #30 tab Thiamine [Vitamin B-1] 100 mg PO DAILY #30 tab Continue Clopidogrel [Plavix] 75 mg PO DAILY Budesonide/Formoterol Fumarate [Symbicort 160-4.5 Mcg Inhaler] 2 puff INHALATION RT-BID Rivaroxaban [Xarelto] 20 mg PO DAILY DULoxetine HCL [Cymbalta] 30 mg PO DAILY dilTIAZem HCL [Cardizem CD] 120 mg PO DAILY Morphine Sulfate 15 mg PO TID Mirabegron [Myrbetriq] 50 mg PO DAILY Losartan [Cozaar] 25 mg PO DAILY Atorvastatin [Lipitor] 20 mg PO DAILY Pantoprazole [Protonix] 40 mg PO DAILY Discharge Medication List Budesonide/Formoterol Fumarate [Symbicort 160-4.5 Mcg Inhaler] 2 puff INHALATION RT-BID 10/29/14 [History] Clopidogrel [Plavix] 75 mg PO DAILY 10/29/14 [History] Atorvastatin [Lipitor] 20 mg PO DAILY 04/15/24 [History] DULoxetine HCL [Cymbalta] 30 mg PO DAILY 04/15/24 [History] Losartan [Cozaar] 25 mg PO DAILY 04/15/24 [History] Mirabegron [Myrbetriq] 50 mg PO DAILY 04/15/24 [History] Morphine Sulfate 15 mg PO TID 04/15/24 [History] Pantoprazole [Protonix] 40 mg PO DAILY 04/15/24 [History] Rivaroxaban [Xarelto] 20 mg PO DAILY 04/15/24 [History] dilTIAZem HCL [Cardizem CD] 120 mg PO DAILY 04/15/24 [History] Acetaminophen Tab [Tylenol] 650 mg PO Q6HR PRN tab 04/18/24 [Rx] Folic Acid 1 mg PO DAILY #30 tab 04/18/24 [Rx] Multivitamins, Thera [Multivitamin (formulary)] 1 each PO DAILY #30 tab 04/18/24 [Rx] Thiamine [Vitamin B-1] 100 mg PO DAILY #30 tab 04/18/24 [Rx] Follow up Appointment(s)/Referral(s): Alejandro Arthur MD [Medical Doctor] - 1 Week [facility] [NON-STAFF] - 1 Week Mack Traylor DO [Primary Care Provider] - 1-2 days Activity/Diet/Wound Care/Special Instructions: Please, follow up with PCP and cardiology.. Stop Aspirin, continue Xarelto and plavix Discharge Disposition: HOME WITH HOME HEALTH SERVICES
== END 2024-04-18 17:56 | disposition home health service (06) | DRG 682 ==
LOC: EC 17:49 → 3SCARD 23:04
PROVIDERS: ADMIT Internal Medicine; ATTEND Internal Medicine
PROC: HZ2ZZZZ Detoxification Services for Substance Abuse Treatment (ICD-10-PCS; principal; 2024-04-15)
DX: N17.9 Acute kidney failure, unspecified (principal); I21.A1 Myocardial infarction type 2; E46 Unspecified protein-calorie malnutrition; E87.20 Acidosis, unspecified; Z68.1 Body mass index [BMI] 19.9 or less, adult; J10.89 Influenza due to other identified influenza virus with other manifestations; I48.0 Paroxysmal atrial fibrillation; Z86.73 Personal history of transient ischemic attack (TIA), and cerebral infarction without residual deficits; I10 Essential (primary) hypertension; F10.20 Alcohol dependence, uncomplicated; E87.6 Hypokalemia; D69.6 Thrombocytopenia, unspecified; D72.819 Decreased white blood cell count, unspecified; E86.0 Dehydration; I95.9 Hypotension, unspecified; I45.81 Long QT syndrome; B18.2 Chronic viral hepatitis C; R00.0 Tachycardia, unspecified; R54 Age-related physical debility; Z71.41 Alcohol abuse counseling and surveillance of alcoholic; Z98.51 Tubal ligation status; Z98.42 Cataract extraction status, left eye; Z98.41 Cataract extraction status, right eye; Z88.6 Allergy status to analgesic agent; Z98.1 Arthrodesis status; Z88.8 Allergy status to other drugs, medicaments and biological substances
CPT/HCPCS: 36415; 70450; 71045; 72125; 80048; 80053; 80306; 80320; 81001; 82140; 83036; 83605; 83735; 83880; 84439; 84443; 84484; 85025; 85027; 85610; 85730; 87636; 93005; 93306; 94760; 96361; 96365; 96366; 99291